=== PATIENT | male | born 1955 | race Asian ===

== ENCOUNTER 2017-02-02 17:13 | Inpatient (IN) | payer OTHER ==
[~2017-02-02] VITALS: Ht 170.2 cm; Wt 96.1 kg
[~2017-02-02 17:13] MED LIST: ATOR10TA65 PO; CLOP75TA4 PO; ISOS60TA PO; MECL25TA2 PO; METO25TA7 PO; NIT4 SL; RANI150T9 PO
[2017-02-02] MEDS ORDERED: ONDANSETRON 4 MG INJ IV STA ×2 (17:39→22:10)
[2017-02-02] MEDS ORDERED: SOD CHLORIDE 0.9% 1,000 ML IV STA ×2 (17:39→21:59)
[2017-02-02] MEDS ORDERED: HYDROmorphONE 1 MG/ML SYG IV STA ×2 (17:39→22:10)
[2017-02-02] MEDS ORDERED: CEFTRIAXONE 1 GM/50 ML (PMX) 50 ML IVPB STA ×2 (17:39→21:55)
[2017-02-02 18:10] LABS: ADD SCAN DIFF NO
[2017-02-02 18:12] LABS: ABNORMAL IP MESSAGE 1; HEMATOCRIT 42.3 % (42.0-52.0); HEMOGLOBIN 14.7 g/dl (14.0-18.0); MEAN CORPUSCULAR HEMOGLOBIN 34.4 pg (29.0-33.0); MEAN CORPUSCULAR HGB CONC 34.8 g/dl (32.0-37.0); MEAN CORPUSCULAR VOLUME 99.1 fl (82.0-101.0); MEAN PLATELET VOLUME 9.5 fl (7.4-10.4); PLATELET COUNT 134 10^3/UL (140-415); RED BLOOD COUNT 4.27 10^6/ul (4.70-6.10); RED CELL DISTRIBUTION WIDTH 12.2 % (11.5-14.5)
[2017-02-02 18:32] LABS: ALBUMIN 4.7 g/dl (3.3-4.9); ALBUMIN/GLOBULIN RATIO 1.3; BILIRUBIN,INDIRECT 0.8 mg/dl (0-1.1); BILIRUBIN,TOTAL 0.8 mg/dl (0.2-1.3); CALCIUM 9.1 mg/dl (8.4-10.2); CREATININE 1.15 mg/dl (0.61-1.24); POTASSIUM 3.9 mmol/L (3.5-5.1); TOTAL PROTEIN 8.3 g/dl (6.1-8.1)
[2017-02-02] MEDS ORDERED: ATOR10TA65 PO (18:54)
[2017-02-02] MEDS ORDERED: IOHEXOL 300MG/ML 150 ML BTL ONE (18:54)
[2017-02-02] MEDS ORDERED: SOD CHLORIDE 0.9% 100 ML ONE (18:54)
[2017-02-02] MEDS ORDERED: TAMS0.4C2 PO (18:55)
[2017-02-02] MEDS ORDERED: ISOS60TA PO (18:55)
[2017-02-02] MEDS ORDERED: PANT40TA4 PO (18:55)
[2017-02-02] MEDS ORDERED: MELO-110 PO (18:56)
[2017-02-02] MEDS ORDERED: METO25TA7 PO (18:56)
[2017-02-02] MEDS ORDERED: CLOP75TA4 PO (18:57)
[2017-02-02 19:15] LABS: LYMPHOCYTES # 0.1 10^3/ul (0.8-2.9); MONOCYTE # 0.5 10^3/ul (0.3-0.9)
[2017-02-02 19:16] LABS: PLATELET ESTIMATE PLT APPEAR ADEQUATE
[2017-02-02 19:19] LABS: ADD UMIC YES; UR ASCORBIC ACID NEGATIVE (NEGATIVE); UR BILIRUBIN (Dip) NEGATIVE (NEGATIVE); UR BLOOD (Dip) 3+ mg/dL (NEGATIVE); UR CLARITY CLOUDY (CLEAR); UR COLOR AMBER (YELLOW); UR GLUCOSE (Dip) NEGATIVE (NEGATIVE); UR KETONES (Dip) NEGATIVE (NEGATIVE); UR LEUKOCYTE ESTERASE (Dip) TRACE Leu/ul (NEGATIVE); UR MUCUS MANY /HPF (NONE SEEN); UR NITRITE (Dip) NEGATIVE (NEGATIVE); UR RBC 54 /HPF (0-5); UR SPECIFIC GRAVITY (Dip) 1.032 (1.003-1.030); UR TOTAL PROTEIN (Dip) 3+ mg/dl (NEGATIVE); UR UROBILINOGEN (Dip) NEGATIVE (NEGATIVE)
--- NOTE | 2017-02-02 19:29 | RADRPT ---
PROCEDURE: CT abdomen and pelvis with intravenous contrast. CLINICAL INDICATION: Right flank pain TECHNIQUE: Following intravenous contrast, spiral CT of the abdomen pelvis was performed and is re constructed at 2.5 mm contiguous axial intervals from the dome of the diaphragm to the inferior pubi c rami. Computer reformatted coronal and sagittal images are included. CT D I 18 millicurie Dose 1033 millicurie per centimeter COMPARISON: CT abdomen pelvis November 21, 2014 FINDINGS: Lung bases are clear of any infiltrate or mass. There is no effusion. The liver is of normal size, contour and attenuation with no mass or intrahepatic ductal dilatation. Tiny gallstones are present with thickening of the wall of the gallbladder compatible with chronic cholecystitis.. No splenic or adrenal abnormalities present. There are punctate calcifications in the pancreas. No mass or ductal dilatation is seen. Kidneys enhance symmetrically. No hydronephrosis or solid mass is present. Sub centimeter cortical cysts are seen in both kidneys. Noted is a 4 mm nonobstructing stone in the mid to upper pole of t he left kidney and a 6 mm nonobstructing stone in the lower pole of the left kidney. The ureters ar e of normal course and caliber with no stone. No bladder masses stone is present. Coarse calcifica tions are seen prostate. The No bowel mass or obstruction is seen. The appendix is normal. There is diverticulosis. There is no phlegmon, ascites or pneumoperitoneum. No aneurysm is detected. There is no retroperitoneal adenopathy. There are enlarged right external iliac chain and inguinal n odes. The osseous structures are intact. IMPRESSION: Multiple nonobstructing left renal calculi. No evidence of obstructive uropathy, diverticulitis or appendicitis. Diverticulosis. Enlarged right external iliac and inguinal nodes. These were present on the prior study but have inc reased in size in the interim. Tiny gallstones with thickening wall of gallbladder. Question chronic cholecystitis. Punctate calcifications throughout pancreas compatible with chronic pancreatitis. .Dao Arrieta MD, Date Time Electronically viewed and signed by .Dao Arrieta MD, on 02/02/2017 19:28 .A/
[2017-02-02] MEDS ORDERED: metroNIDAZOLE 500 MG/NS (PMX) 100 ML IVPB STA (21:55)
[2017-02-02 22:01] VITALS: TEMP 98.7
--- NOTE | 2017-02-02 22:23 | RADRPT ---
PROCEDURE: Right upper quadrant abdominal ultrasound. CLINICAL INDICATION: Abdominal pain TECHNIQUE: Osorio scale and color doppler ultrasound images of the right upper quadrant. COMPARISON: CT abdomen pelvis 02/02/2017 FINDINGS: Pancreas: Visualized portions appear of normal echogenicity, no focal lesions. Liver: Morphology: Normal in size and contour. Echogenicity: Increased echogenicity of the liver parenchyma suggestive of hepatic steatosis. Focal lesions: None. Main portal vein: Patent with hepatopetal flow. Biliary System: Normal appearing gallbladder wall. No gallstones seen. Possible septation versus adherent sludge within the region of the gallbladder f undus. No intrahepatic biliary dilatation. Common bile duct measures 4.0 mm in maximal dimension. Kidneys: Right 11.2 cm in length. Right renal cortical thickness is preserved. Normal echogenicity. No hydronephrosis. No renal calculi. No focal lesions. No free fluid identified. IMPRESSION: No gallstones. No evidence of gallbladder wall thickening to suggest cholecystitis. Questionable small septation versus adenomyosis versus phrygian cap configuration of the gallbladder fundus; these are all benign findings and correspond to the abnormality seen on the prior CT scan. Normal caliber intrahepatic and extrahepatic biliary system. RPTAT: AADD .Kavin Nesbitt MD, MD Date Time Electronically viewed and signed by .Kavin Nesbitt MD, on 02/02/2017 22:23 .B/
--- NOTE | 2017-02-02 23:04 | ERA ---
ER Documentation Chief Complaint Date/Time DATE: 02/02/17 TIME: 23:03 Chief Complaint lt flank pain with fever since last night HPI 62-year-old male who is complaining of pain in his right flank yesterday with fever of 102. Patient's had chills but no nausea vomiting diarrhea. Denies any cough. No headache. States he has kidney stones in the past and feels like this might be the same pain. The pain is dull and constant. He does have a bit of a decrease in appetite. Denies any hematuria dysuria ROS All systems reviewed and are negative except as per history of present illness. Medications Home Meds Reported Medications Clopidogrel Bisulfate* (Clopidogrel Bisulfate*) 75 Mg Tablet, 75 MG PO DAILY, # 30 TAB 02/02/17 Metoprolol Succinate* (Toprol XL*) 25 Mg Tab.sr.24h, 25 MG PO DAILY, #30 TAB 02/02/17 Meloxicam* (Mobic*) 15 Mg Tablet, 15 MG PO DAILY, #30 TAB WITH FOOD 02/02/17 Pantoprazole* (Pantoprazole*) 40 Mg Tablet.dr, 40 MG PO AC BREAKFAST, TAB 02/02/17 Tamsulosin Hcl* (Tamsulosin Hcl*) 0.4 Mg Cap.er.24h, 0.4 MG PO DAILY, CAP 02/02/17 Isosorbide Mononitrate* (Isosorbide Mononitrate*) 60 Mg Tab.er.24h, 60 MG PO DAILY, TAB 02/02/17 Atorvastatin Calcium (Atorvastatin Calcium) 10 Mg Tablet, 10 MG PO QHS, #30 TAB 02/02/17 Discontinued Reported Medications Nitroglycerin* (Nitrostat*) 0.4 Mg Tab.subl, 0.4 MG SL Q5MIN Y for CHEST PAIN, BOTTLE 11/21/14 Atorvastatin Calcium (Atorvastatin Calcium) 10 Mg Tab, 10 MG PO HS, TAB 11/21/14 Isosorbide Mononitrate* (Isosorbide Mononitrate*) 60 Mg Tab.er.24h, 60 MG PO DAILY, TAB 03/17/14 Discontinued Scripts Meclizine Hcl* (Antivert*) 25 Mg Tablet, 25 MG PO Q6H for DIZZINESS, #20 TAB Prov:PRUDENCE MISHRA DO 10/27/15 Ranitidine Hcl* (Zantac*) 150 Mg Tablet, 150 MG PO BID for EPIGASTRIC PAIN, #60 TAB Prov:PRUDENCE MISHRA DO 10/27/15 Metoprolol Succinate* (Toprol XL*) 25 Mg Tabsr, 25 MG PO DAILY for 28 Days Prov:MARY YORK CELL REPAIRER 03/20/14 Clopidogrel Bisulfate* (Clopidogrel Bisulfate*) 75 Mg Tablet, 75 MG PO DAILY for 28 Days, TAB Prov:MARY YORK CELL REPAIRER 03/20/14 Allergies Allergies: Coded Allergies: amoxicillin (Unverified Allergy, Unknown, 02/02/17) PMhx/Soc History of Surgery: No Anesthesia Reaction: No Hx 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 Disorder: No Hx Respiratory Disorders: No Hx Cardiac Disorders: Yes (hx of HTN) Hx Psychiatric Problems: No Hx Miscellaneous Medical Probl: Yes (hc DM) Hx Alcohol Use: No Hx Substance Use: No Hx Tobacco Use: No Smoking Status: Never smoker FmHx Family History: No coronary disease Physical Exam Vitals Vital Signs Date Time Temp Pulse Resp B/P Pulse Ox O2 Delivery O2 Flow Rate FiO2 02/02/17 22:01 98.7 02/02/17 21:00 88 14 136/95 Room Air 02/02/17 18:21 89 14 109/71 96 Room Air 02/02/17 17:16 99.6 101 18 128/69 96 Physical Exam Const: Well-developed, well-nourished, slightly ill-appearing Head: Atraumatic, normocephalic Eyes: Normal Conjunctiva, PERRLA, EOMI, normal sclera, no nystagmus ENT: Normal External Ears, Nose and Mouth, moist mucus membranes. Neck: Full range of motion. No meningismus, no lymphadenopathy. Resp: Clear to auscultation bilaterally, no wheezing, rhonchi, rales Cardio: Regular rate and rhythm, no murmurs, S1 S2 present Abd: Soft, moderate right mid abdomen tenderness, non distended. Normal bowel sounds, no guarding or rebound, no pulsitile abdominal masses or bruits Skin: No petechiae or rashes, no ecchymosis , no maculopapular rash Back: Moderate right CVA tenderness Ext: No cyanosis, or edema, FROM x 4, normal inspection, neurovascularly intact x 4 Neur: Awake and alert, STR 5/5 x 4, sensation intact x 4, no focal findings, cerebellum intact Psych: Normal Mood and Affect Result Diagram: 02/02/17 1800 02/02/17 1800 Results 24 hrs Laboratory Tests Test 02/02/17 18:00 White Blood Count 12.010^3/ul Red Blood Count 4.2710^6/ul Hemoglobin 14.7g/dl Hematocrit 42.3% Mean Corpuscular Volume 99.1fl Mean Corpuscular Hemoglobin 34.4pg Mean Corpuscular Hemoglobin Concent 34.8g/dl Red Cell Distribution Width 12.2% Platelet Count 57766^3/UL Mean Platelet Volume 9.5fl Neutrophils % 83.0% Band Neutrophils % 11.0% Lymphocytes % 1.0% Monocytes % 4.0% Eosinophils % % Metamyelocytes % 1.0% Neutrophils # 10.010^3/ul Lymphocytes # 0.110^3/ul Monocytes # 0.510^3/ul Eosinophils # 10^3/ul Metamyelocytes # 0.1 Platelet Estimate PLT APPEAR ADEQUATE Urine Color OMAR Urine Clarity CLOUDY Urine pH 5.0 Urine Specific [place] 1.032 Urine Ketones NEGATIVEmg/dL Urine Nitrite NEGATIVEmg/dL Urine Bilirubin NEGATIVEmg/dL Urine Urobilinogen NEGATIVEmg/dL Urine Leukocyte Esterase TRACELeu/ul Urine Microscopic RBC 54/HPF Urine Microscopic WBC 12/HPF Urine Mucus MANY/HPF Urine Hemoglobin 3+mg/dL Urine Glucose NEGATIVEmg/dL Urine Total Protein 3+mg/dl Sodium Level 135mmol/L Potassium Level 3.9mmol/L Chloride Level 98mmol/L Carbon Dioxide Level 25mmol/L Anion Gap 16 Blood Urea Nitrogen 17mg/dl Creatinine 1.15mg/dl Glucose Level 135mg/dl Calcium Level 9.1mg/dl Total Bilirubin 0.8mg/dl Direct Bilirubin 0.00mg/dl Indirect Bilirubin 0.8mg/dl Aspartate Amino Transf (AST/SGOT) 16IU/L Alanine Aminotransferase (ALT/SGPT) 27IU/L Alkaline Phosphatase 61IU/L Total Protein 8.3g/dl Albumin 4.7g/dl Globulin 3.60g/dl Albumin/Globulin Ratio 1.30 Current Medications Medications (Trade) Dose Ordered Sig/[place] Route PRN Reason Start Time Stop Time Status Last Admin Dose Admin Sodium Chloride (NS) 1,000 ml @ 1,000 mls/hr Q1H STAT IV 02/02/17 17:39 02/02/17 18:38 DC 02/02/17 18:32 Hydromorphone HCl (Dilaudid) 1 mg ONCE STAT IV 02/02/17 17:39 02/02/17 17:43 DC 02/02/17 18:36 Ondansetron HCl 4 mg 4 mg ONCE STAT IV 02/02/17 17:39 02/02/17 17:43 DC 02/02/17 18:36 Ceftriaxone Sodium (Rocephin) 50 ml @ 100 mls/hr ONCE STAT IVPB 02/02/17 17:39 02/02/17 18:08 DC 02/02/17 18:36 IV Flush 10 ml 10 ml STK-MED ONCE .ROUTE 02/02/17 18:54 02/02/17 18:55 DC 02/02/17 19:04 Sodium Chloride (NS) 100 ml @ ud STK-MED ONCE .ROUTE 02/02/17 18:54 02/02/17 18:55 DC 02/02/17 19:04 Iohexol 150 ml 150 ml STK-MED ONCE .ROUTE 02/02/17 18:54 02/02/17 18:55 DC 02/02/17 19:04 Ceftriaxone Sodium 50 ml @ 100 mls/hr ONCE STAT IVPB 02/02/17 21:55 02/02/17 22:24 UNV Metronidazole 100 ml @ 100 mls/hr ONCE STAT IVPB 02/02/17 21:55 02/02/17 22:54 DC 02/02/17 22:09 Sodium Chloride (NS) 1,000 ml @ 1,000 mls/hr Q1H STAT IV 02/02/17 21:59 02/02/17 22:58 DC 02/02/17 22:09 Hydromorphone HCl (Dilaudid) 1 mg ONCE STAT IV 02/02/17 22:10 02/02/17 22:11 DC 02/02/17 22:15 Ondansetron HCl (Zofran Inj) 4 mg ONCE STAT IV 02/02/17 22:10 02/02/17 22:11 DC 02/02/17 22:15 Sodium Chloride (NS) 2,850 ml BOLUS OVER 2 HOURS STAT IV* 02/02/17 23:23 02/02/17 23:25 DC Procedures/MDM PROCEDURE: CT abdomen and pelvis with intravenous contrast. CLINICAL INDICATION: Right flank pain TECHNIQUE: Following intravenous contrast, spiral CT of the abdomen pelvis was performed and is reconstructed at 2.5 mm contiguous axial intervals from the dome of the diaphragm to the inferior pubic rami. Computer reformatted coronal and sagittal images are included. CT D I 18 millicurie Dose 1033 millicurie per centimeter COMPARISON: CT abdomen pelvis November 21, 2014 FINDINGS: Lung bases are clear of any infiltrate or mass. There is no effusion. The liver is of normal size, contour and attenuation with no mass or intrahepatic ductal dilatation. Tiny gallstones are present with thickening of the wall of the gallbladder compatible with chronic cholecystitis.. No splenic or adrenal abnormalities present. There are punctate calcifications in the pancreas. No mass or ductal dilatation is seen. Kidneys enhance symmetrically. No hydronephrosis or solid mass is present. Sub centimeter cortical cysts are seen in both kidneys. Noted is a 4 mm nonobstructing stone in the mid to upper pole of the left kidney and a 6 mm nonobstructing stone in the lower pole of the left kidney. The ureters are of normal course and caliber with no stone. No bladder masses stone is present. Coarse calcifications are seen prostate. The No bowel mass or obstruction is seen. The appendix is normal. There is diverticulosis. There is no phlegmon, ascites or pneumoperitoneum. No aneurysm is detected. There is no retroperitoneal adenopathy. There are enlarged right external iliac chain and inguinal nodes. The osseous structures are intact. IMPRESSION: Multiple nonobstructing left renal calculi. No evidence of obstructive uropathy , diverticulitis or appendicitis. Diverticulosis. Enlarged right external iliac and inguinal nodes. These were present on the prior study but have increased in size in the interim. Tiny gallstones with thickening wall of gallbladder. Question chronic cholecystitis. Punctate calcifications throughout pancreas compatible with chronic pancreatitis. .Dao Arrieta MD, Date Time Electronically viewed and signed by .Dao Arrieta MD, MD on 02/02/2017 19: 28 .A/ CC: SONALI QUINN DO PROCEDURE: Right upper quadrant abdominal ultrasound. CLINICAL INDICATION: Abdominal pain TECHNIQUE: Osorio scale and color doppler ultrasound images of the right upper quadrant. COMPARISON: CT abdomen pelvis 02/02/2017 FINDINGS: Pancreas: Visualized portions appear of normal echogenicity, no focal lesions. Liver: Morphology: Normal in size and contour. Echogenicity: Increased echogenicity of the liver parenchyma suggestive of hepatic steatosis. Focal lesions: None. Main portal vein: Patent with hepatopetal flow. Biliary System: Normal appearing gallbladder wall. No gallstones seen. Possible septation versus adherent sludge within the region of the gallbladder fundus. No intrahepatic biliary dilatation. Common bile duct measures 4.0 mm in maximal dimension. Kidneys: Right 11.2 cm in length. Right renal cortical thickness is preserved. Normal echogenicity. No hydronephrosis. No renal calculi. No focal lesions. No free fluid identified. IMPRESSION: No gallstones. No evidence of gallbladder wall thickening to suggest cholecystitis. Questionable small septation versus adenomyosis versus phrygian cap configuration of the gallbladder fundus; these are all benign findings and correspond to the abnormality seen on the prior CT scan. Normal caliber intrahepatic and extrahepatic biliary system. RPTAT: AADD .Kavin Nesbitt MD, MD Date Time Electronically viewed and signed by .Kavin Nesbitt MD, MD on 02/02/2017 22:23 .B/ CC: SONALI QUINN DO Patient of blood and urine cultures along with Rocephin and Flagyl IV Normal saline 2 L Patient has a bandemia of 11% 83% neutrophils. The patient does not clinically look well. He states she still having pain. He has had a few rounds of Dilaudid IV for pain already. The patient has pyelonephritis. Spoke with Dr. Gomez for admission Order lactates however do not feel the patient is septic clinically has stable vital signs Departure Diagnosis: Primary Impression: Pyelonephritis Condition: Stable SONALI QUINN DO Feb 02, 2017 23:04
[2017-02-02] MEDS ORDERED: SODIUM CHLORIDE 0.9% 1L BAG IV* STA (23:23)
[2017-02-02] MEDS ORDERED: SOD CHLORIDE 0.9% 1,000 ML IV SCH (23:38)
--- NOTE | 2017-02-02 23:40 | RADRPT ---
PROCEDURE: Portable chest x-ray. CLINICAL INDICATION: Chest pain. TECHNIQUE: Portable AP view of the chest. COMPARISON: 10/26/2015. FINDINGS: There is vascular congestion. No pulmonary conolidation is identified. The cardiac silhouette is m ildly enlarged. There are small bilateral pleural effusions. There is no pneumothorax. IMPRESSION: 1. Vascular congestion. 2. Mildly enlarged cardiac silhouette. 3. Small bilateral pleural effusions. RPTAT: HTAR .Fady Adams MD, Date Time Electronically viewed and signed by .Fady Adams MD, on 02/02/2017 23:40 .R/
[2017-02-03 00:57] VITALS: BP 161/78; RESP 18
[2017-02-03 01:32] VITALS: Ht 170.2 cm; Wt 96.1 kg
[2017-02-03] MEDS ORDERED: VANCOMYCIN IV PER PHARMACY XX SCH (02:30)
[2017-02-03] MEDS ORDERED: ONDANSETRON 4 MG INJ IV PRN ×2 (02:30)
[2017-02-03] MEDS ORDERED: SOD CHLORIDE 0.9% 1,000 ML IV SCH (02:30)
[2017-02-03] MEDS ORDERED: ACETAMINOPHEN 325 MG TAB PO PRN ×2 (02:30)
[2017-02-03] MEDS: morphine 4 MG/ML VIAL IV PRN ×3 (02:50→18:31)
[2017-02-03] MEDS: SOD CHLORIDE 0.9% 1,000 ML IV SCH ×3 (02:53→22:30)
[2017-02-03] MEDS ORDERED: VANCOMYCIN 1.5 GM in SOD CHLORIDE 0.9% 250 ML IVPB ONE (03:00)
[2017-02-03] MEDS: metroNIDAZOLE 500 MG/NS (PMX) 100 ML IVPB SCH ×3 (06:26→22:08)
[2017-02-03] MEDS: PANTOPRAZOLE (EC) 40 MG TAB PO SCH (06:31)
[2017-02-03 07:02] LABS: ADD SCAN DIFF NO
[2017-02-03 07:04] LABS: BASOPHILS % 0.4 % (0.0-2.0); HEMATOCRIT 40.7 % (42.0-52.0); HEMOGLOBIN 13.9 g/dl (14.0-18.0); LYMPHOCYTES % 8.5 % (15.0-51.0); MEAN CORPUSCULAR HEMOGLOBIN 34.6 pg (29.0-33.0); MEAN CORPUSCULAR HGB CONC 34.2 g/dl (32.0-37.0); MEAN CORPUSCULAR VOLUME 101.2 fl (82.0-101.0); MONOCYTE # 0.5 10^3/ul (0.3-0.9); MONOCYTES % 4.4 % (0.0-11.0); NEUTROPHIL # 9.7 10^3/ul (1.6-7.5); NEUTROPHILS % 85.7 % (39.0-77.0); PLATELET COUNT 128 10^3/UL (140-415); RED BLOOD COUNT 4.02 10^6/ul (4.70-6.10); RED CELL DISTRIBUTION WIDTH 12.1 % (11.5-14.5); WHITE BLOOD COUNT 11.3 10^3/ul (4.8-10.8)
[2017-02-03 07:39] LABS: CALCIUM 8.6 mg/dl (8.4-10.2); CREATININE 0.92 mg/dl (0.61-1.24)
[2017-02-03] MEDS: METOPROLOL (XL) 25 MG TAB PO SCH (08:33)
[2017-02-03] MEDS: CLOPIDOGREL 75 MG TAB PO SCH (08:34)
[2017-02-03] MEDS: ISOSORBIDE MONONITRATE(SR)60 MG TAB PO SCH (08:34)
[2017-02-03 09:17] VITALS: BP 128/72; RESP 18
--- NOTE | 2017-02-03 11:08 | HP ---
Date/Time of Note Date/Time of Note DATE: 02/03/17 TIME: 10:32 Assessment/Plan VTE Prophylaxis VTE Prophylaxis Intervention: LMWH Lines/Catheters [facility] ([facility] Peripheral IV Urinary Cath still in place: No Assessment/Plan Assessment/Plan 62-year-old male with: 1. Flank pain, clinical diagnosis of pyelonephritis/cystitis: Continue current antibiotics, follow urine culture and blood cultures for further adjustments. 2. Peripheral vascular disease: Continue antiplatelet therapy, patient will need arterial Dopplers to be done but also referral to vascular surgery as an outpatient and likely also podiatry given his recurrent left medial malleolar wound 3. Left medial malleolar wound: Peripheral vascular disease workup, vascular surgery referral as needed, wound care. 4. Hypertension: Continue home meds 5. Benign prostatic hypertrophy: Continue home meds. 6. Gastroesophageal reflux disease: Continue PPI Prophylaxis: Tonics for GI prophylaxis and Lovenox for DVT prophylaxis Disposition: Follow-up urine cultures blood cultures for further antibiotic adjustment, follow-up arterial Doppler lower extremities HPI/ROS Admit Date/Time Admit Date/Time Feb 02, 2017 at 23:39 Hx of Present Illness Chief complaint: Fevers and flank pain History of presenting illness: 62-year-old male with history of benign prostatic hypertrophy, peripheral artery disease, hypertension, morbid obesity presented to the emergency department with complaints of bilateral flank pain, fevers and chills for the past 3 days. The patient also reports dysuria for the past 3 days. He denies any suprapubic tenderness. He denies any chest pain , shortness of breath or diarrhea. CAT scan of the abdomen and pelvis showing some inguinal lymphadenopathy but no radiological signs of pyelonephritis. However based on patient's complaint definitely symptoms consistent with cystitis at least. He has been started on IV antibiotics and a urine culture and blood cultures are pending. Also patient was found to have left medial malleolar recurring wounds, according to the family he was told he may have peripheral arterial disease and has been on Plavix actually. He also does carry history of cardiomyopathy that is unclear the primary etiology patient had an angiogram done in the [facility] 3 years ago and he was told he did not have any obstructive coronary artery disease. We will do noninvasive workup for peripheral artery disease however patient understand that further referral will be done outpatient vascular surgery as needed and he definitely will need a field sales representative or wound care physician to take care of this recurrent ulcer. He has been seen by wound care and will continue wound care per recommendations ROS Constitutional: chills, diaphoresis Eyes: no complaints ENT: no complaints Respiratory: no complaints Cardiovascular: no complaints Gastrointestinal: decreased appetite, nausea Genitourinary: dysuria, flank pain Musculoskeletal: no complaints Skin: other (left maleolar recurrent wound ) Neurologic: no complaints Endocrine: no complaints Lymphatic: other (varicose veins) PMH/Family/Social Past Medical History Peripheral vascular disease Varicose vein Morbid obesity Hypertension Reported history of cardiomyopathy BPH Medical History: GERD, hypertension Past Surgical History Past Surgical Hx: no surgical history Family History Significant Family History: no pertinent family hx Social History Alcohol Use: sober (Patient quit 4 years ago only drinks occasional red wine) Smoking Status: Former smoker (At least one pack a day for 40 years and quit 4 years ago) Drug Use: none Exam/Review of Systems Vital Signs Vitals Vital Signs Date Time Temp Pulse Resp B/P Pulse Ox O2 Delivery O2 Flow Rate FiO2 02/03/17 09:17 98.4 89 18 128/72 97 02/02/17 23:50 Room Air Intake and Output 02/02/17 02/02/17 02/03/17 15:00 23:00 07:00 Intake Total 650 ml Balance 650 ml Exam Constitutional: alert, oriented, other (Obese), well developed Head: normocephalic ENMT: nl external ears & nose, nl lips & teeth Respiratory: clear to auscultation, normal air movement Cardiovascular: nl pulses, regular rate and rhythm Gastrointestinal: non-tender, soft Genitourinary - Male: CVA tenderness (Bilateral) Musculoskeletal: nl gait and stance 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: SUPERVISOR PRINT LINE II-XII intact, nl mental status, nl speech, nl strength Skin: other (Left medial malleolar recurring wound) Lymph: other (Varicose veins bilaterally) Labs Result Diagram: 02/03/1759 02/03/1759 Medications Medications Current Medications Ceftriaxone Sodium 50 ml @ 100 mls/hr Q24H IVPB ; Start 02/03/17 at 18:00 Metronidazole (Flagyl 500 Mg (Pmx)) 100 ml @ 100 mls/hr Q8 IVPB Last administered on 02/03/17t 06:26; Admin Dose 100 MLS/HR; Start 02/03/17 at 06:00 Acetaminophen (Tylenol Tab) 650 mg Q4H PRN PO PAIN AND OR ELEVATED TEMP; Start 02/03/17 at 02:30 Morphine Sulfate (morphine) 4 mg Q4H PRN IV pain Last administered on 10:17; Admin Dose 4 MG; Start 02/03/17 at 02:30 Ondansetron HCl 4 mg 4 mg Q4H PRN IV NAUSEA AND/OR VOMITING; Start 02/03/17 at 02:30 Sodium Chloride (NS) 1,000 ml @ 100 mls/hr Q10H IV Last administered on 02:53; Admin Dose 100 MLS/HR; Start 02/03/17 at 02:30 Atorvastatin Calcium (Lipitor) 10 mg QHS PO ; Start 02/03/17 at 21:00 Clopidogrel Bisulfate (plaVIX) 75 mg DAILY PO Last administered on 02/03/17 08 :34; Admin Dose 75 MG; Start 02/03/17 at 09:00 Isosorbide Mononitrate (Imdur) 60 mg DAILY PO Last administered on 02/03/17 08 :34; Admin Dose 60 MG; Start 02/03/17 at 09:00 Metoprolol Succinate (Toprol Xl) 25 mg DAILY PO Last administered on 02/03/17 08:33; Admin Dose 25 MG; Start 02/03/17 at 09:00 Tamsulosin HCl 0.4 mg 0.4 mg DAILY@21 PO ; Start 02/03/17 at 21:00 Vancomycin HCl/ Sodium Chloride (Vancocin/NS) 250 ml @ 83.333 mls/ hr Q12H IVPB ; Start 02/03/17 at 15:00 Miscellaneous Information (*Rx Drug Level Order Reminder*) VANCO TROUGH @ 1, 400 ON... ONCE ONCE XX ; Start 02/04/17 at 14:00; Stop 02/04/17 at 14:01 Procedures Procedures PROCEDURE: CT abdomen and pelvis with intravenous contrast. CLINICAL INDICATION: Right flank pain TECHNIQUE: Following intravenous contrast, spiral CT of the abdomen pelvis was performed and is reconstructed at 2.5 mm contiguous axial intervals from the dome of the diaphragm to the inferior pubic rami. Computer reformatted coronal and sagittal images are included. CT D I 18 millicurie Dose 1033 millicurie per centimeter COMPARISON: CT abdomen pelvis November 21, 2014 FINDINGS: Lung bases are clear of any infiltrate or mass. There is no effusion. The liver is of normal size, contour and attenuation with no mass or intrahepatic ductal dilatation. Tiny gallstones are present with thickening of the wall of the gallbladder compatible with chronic cholecystitis.. No splenic or adrenal abnormalities present. There are punctate calcifications in the pancreas. No mass or ductal dilatation is seen. Kidneys enhance symmetrically. No hydronephrosis or solid mass is present. Sub centimeter cortical cysts are seen in both kidneys. Noted is a 4 mm nonobstructing stone in the mid to upper pole of the left kidney and a 6 mm nonobstructing stone in the lower pole of the left kidney. The ureters are of normal course and caliber with no stone. No bladder masses stone is present. Coarse calcifications are seen prostate. The No bowel mass or obstruction is seen. The appendix is normal. There is diverticulosis. There is no phlegmon, ascites or pneumoperitoneum. No aneurysm is detected. There is no retroperitoneal adenopathy. There are enlarged right external iliac chain and inguinal nodes. The osseous structures are intact. IMPRESSION: Multiple nonobstructing left renal calculi. No evidence of obstructive uropathy , diverticulitis or appendicitis. Diverticulosis. Enlarged right external iliac and inguinal nodes. These were present on the prior study but have increased in size in the interim. Tiny gallstones with thickening wall of gallbladder. Question chronic cholecystitis. Punctate calcifications throughout pancreas compatible with chronic pancreatitis. .Dao Arrieta MD, MD Date Time Electronically viewed and signed by .Dao Arrieta MD, on 02/02/2017 19: 28 PROCEDURE: Right upper quadrant abdominal ultrasound. CLINICAL INDICATION: Abdominal pain TECHNIQUE: Osorio scale and color doppler ultrasound images of the right upper quadrant. COMPARISON: CT abdomen pelvis 02/02/2017 FINDINGS: Pancreas: Visualized portions appear of normal echogenicity, no focal lesions. Liver: Morphology: Normal in size and contour. Echogenicity: Increased echogenicity of the liver parenchyma suggestive of hepatic steatosis. Focal lesions: None. Main portal vein: Patent with hepatopetal flow. Biliary System: Normal appearing gallbladder wall. No gallstones seen. Possible septation versus adherent sludge within the region of the gallbladder fundus. No intrahepatic biliary dilatation. Common bile duct measures 4.0 mm in maximal dimension. Kidneys: Right 11.2 cm in length. Right renal cortical thickness is preserved. Normal echogenicity. No hydronephrosis. No renal calculi. No focal lesions. No free fluid identified. IMPRESSION: No gallstones. No evidence of gallbladder wall thickening to suggest cholecystitis. Questionable small septation versus adenomyosis versus phrygian cap configuration of the gallbladder fundus; these are all benign findings and correspond to the abnormality seen on the prior CT scan. Normal caliber intrahepatic and extrahepatic biliary system. RPTAT: AADD .Kavin Nesbitt MD, Date Time Electronically viewed and signed by .Kavin Nesbitt MD, MD on 02/02/2017 22:23 PROCEDURE: Portable chest x-ray. CLINICAL INDICATION: Chest pain. TECHNIQUE: Portable AP view of the chest. COMPARISON: 10/26/2015. FINDINGS: There is vascular congestion. No pulmonary conolidation is identified. The cardiac silhouette is mildly enlarged. There are small bilateral pleural effusions. There is no pneumothorax. IMPRESSION: 1. Vascular congestion. 2. Mildly enlarged cardiac silhouette. 3. Small bilateral pleural effusions. RPTAT: HTAR .Fady Adams MD, MD Date Time Electronically viewed and signed by .Fady Adams MD, MD on 02/02/2017 23:40 EDWIN RATLIFF Feb 03, 2017 10:42
[2017-02-03 15:04] VITALS: BP 126/68; RESP 16
[2017-02-03] MEDS: ENOXAPARIN 40 MG/0.4 ML SYG SC SCH (15:07)
[2017-02-03] MEDS: VANCOMYCIN 1.25 GM in SOD CHLORIDE 0.9% 250 ML IVPB SCH (15:50)
[2017-02-03] MEDS: ACETAMINOPHEN 325 MG TAB PO PRN (17:11)
[2017-02-03] MEDS ORDERED: CEFTRIAXONE 1 GM/50 ML (PMX) 50 ML IVPB SCH (18:00)
[2017-02-03] MEDS ORDERED: PENDING SANTYL ORDER FOR WOUND CARE XX SCH (19:30)
[2017-02-03 20:12] VITALS: BP 128/81; RESP 20
[2017-02-03] MEDS: TAMSULOSIN (SR) 0.4 MG CAP PO SCH (20:39)
[2017-02-03] MEDS: ATORVASTATIN 10 MG TAB PO SCH (20:39)
[2017-02-04] VITALS (7 sets, daily range): BP systolic 108–159; BP diastolic 53–92; PULSE 90–112; RESP 18–22
[2017-02-04] MEDS: ACETAMINOPHEN 325 MG TAB PO PRN ×3 (00:42→18:00)
[2017-02-04] MEDS: morphine 4 MG/ML VIAL IV PRN ×4 (01:25→18:00)
[2017-02-04] MEDS: NITROGLYCERIN (SL) 0.4 MG TAB SL PRN ×2 (01:29→01:40)
[2017-02-04] MEDS: VANCOMYCIN 1.25 GM in SOD CHLORIDE 0.9% 250 ML IVPB SCH ×2 (03:17→15:23)
[2017-02-04 06:36] LABS: ADD SCAN DIFF NO
[2017-02-04] MEDS: PANTOPRAZOLE (EC) 40 MG TAB PO SCH (06:42)
[2017-02-04] MEDS: metroNIDAZOLE 500 MG/NS (PMX) 100 ML IVPB SCH ×3 (06:42→21:24)
[2017-02-04 06:51] LABS: BASOPHILS % 0.2 % (0.0-2.0); HEMATOCRIT 37.9 % (42.0-52.0); HEMOGLOBIN 13.1 g/dl (14.0-18.0); LYMPHOCYTES # 1.1 10^3/ul (0.8-2.9); LYMPHOCYTES % 10.1 % (15.0-51.0); MEAN CORPUSCULAR HEMOGLOBIN 34.2 pg (29.0-33.0); MEAN CORPUSCULAR HGB CONC 34.6 g/dl (32.0-37.0); MEAN PLATELET VOLUME 10.4 fl (7.4-10.4); MONOCYTE # 0.7 10^3/ul (0.3-0.9); MONOCYTES % 6.5 % (0.0-11.0); NEUTROPHIL # 8.9 10^3/ul (1.6-7.5); NEUTROPHILS % 82.6 % (39.0-77.0); PLATELET COUNT 126 10^3/UL (140-415); RED BLOOD COUNT 3.83 10^6/ul (4.70-6.10); RED CELL DISTRIBUTION WIDTH 11.9 % (11.5-14.5); WHITE BLOOD COUNT 10.8 10^3/ul (4.8-10.8)
[2017-02-04 07:08] LABS: CHOL/HDL RATIO 3.5 RATIO; MAGNESIUM 1.6 mg/dl (1.7-2.5); PHOSPHORUS 2.7 mg/dl (2.5-4.9)
[2017-02-04 07:10] LABS: ALBUMIN 3.9 g/dl (3.3-4.9); ALBUMIN/GLOBULIN RATIO 1.25; BILIRUBIN,INDIRECT 0.4 mg/dl (0-1.1); BILIRUBIN,TOTAL 0.4 mg/dl (0.2-1.3); CALCIUM 8.4 mg/dl (8.4-10.2); CREATININE 0.82 mg/dl (0.61-1.24); POTASSIUM 4.1 mmol/L (3.5-5.1)
[2017-02-04] MEDS: ISOSORBIDE MONONITRATE(SR)60 MG TAB PO SCH (09:21)
[2017-02-04] MEDS: CLOPIDOGREL 75 MG TAB PO SCH (09:21)
[2017-02-04] MEDS: METOPROLOL (XL) 25 MG TAB PO SCH (09:21)
[2017-02-04] MEDS: ENOXAPARIN 40 MG/0.4 ML SYG SC SCH (09:23)
[2017-02-04] MEDS ORDERED: COLLAGENASE 30 GM TUBE TOP PRN (10:00)
--- NOTE | 2017-02-04 10:06 | PN ---
Date/Time of Note Date/Time of Note DATE: 02/04/17 TIME: 09:57 Assessment/Plan VTE Prophylaxis VTE Prophylaxis Intervention: LMWH Lines/Catheters IV [facility] Type (from [facility]): Peripheral IV Urinary Cath still in place: No Assessment/Plan Assessment/Plan 62-year-old male with: 1. Flank pain, clinical diagnosis of pyelonephritis/cystitis: Urine culture with mixed organisms likely contaminated. Continue current antibiotics, We will change Rocephin to Levaquin. Blood cultures NGTD. 2. Peripheral vascular disease: Continue antiplatelet therapy, Arterial Dopplers pending and referral to vascular surgery prn 3. Left medial malleolar infected wound with noted the left lower extremity cellulitis today, the wound itself has discharge coming off of it. Patient was febrile overnight, wound culture pending, antibiotics adjusted to Levaquin and vancomycin. Peripheral vascular disease workup, vascular surgery referral as needed, wound care and podiatry to be consulted. 4. Hypertension: Continue home meds 5. Benign prostatic hypertrophy: Continue home meds. 6. Gastroesophageal reflux disease: Continue PPI 7. Episode of chest pain: EKG within normal limits, troponin within normal limits, will check a second troponin 8 hours apart. Continue aspirin and outpatient medication. Prophylaxis: PPI for GI prophylaxis and Lovenox for DVT prophylaxis Disposition: Follow-up arterial Doppler lower extremities, blood cultures, wound cultures. Patient admitted status has been changed to inpatient as of today. Subjective 24 Hr Interval Summary Free Text/Dictation Patient was episode of fever up to 103 overnight, chills, diaphoresis. He is also noted to have now left lower extremity cellulitis likely from left medial malleolar wound infection disease with him being on vancomycin, antibiotics have been adjusted Levaquin has been started. White blood cell count is within normal however. Patient still having dysuria and urinary frequency but urine culture likely contaminated Episode of chest pain overnight resolved, likely secondary to fevers chills and overall myalgia and discomfort. Exam/Review of Systems Vital Signs Vitals Vital Signs Date Time Temp Pulse Resp B/P Pulse Ox O2 Delivery O2 Flow Rate FiO2 02/04/17 08:00 99.4 98 18 134/71 96 02/02/17 23:50 Room Air Intake and Output 02/03/17 02/03/17 02/04/17 15:00 23:00 07:00 Intake Total 100 ml 1350 ml 600 ml Output Total 600 ml Balance 100 ml 1350 ml 0 ml Exam Constitutional: alert, obese, oriented, well developed Respiratory: clear to auscultation, normal air movement Cardiovascular: nl pulses, regular rate and rhythm Gastrointestinal: non-tender, soft Musculoskeletal: other (Left lower extremity cellulitis with infected left medial malleolar wound) Extremities: other (Chronic skin changes bilateral lower extremity with acute infection left lower) 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: BRAKE TESTER II-XII intact, nl mental status, nl speech, nl strength Results Result Diagram: 02/04/1748 02/04/1748 Results 24 hrs Laboratory Tests Test 02/04/17 01:53 02/04/17 05:48 02/04/17 05:49 Troponin I < 0.012 White Blood Count 10.8 Red Blood Count 3.83 L Hemoglobin 13.1 L Hematocrit 37.9 L Mean Corpuscular Volume 99.0 Mean Corpuscular Hemoglobin 34.2 H Mean Corpuscular Hemoglobin Concent 34.6 Red Cell Distribution Width 11.9 Platelet Count 126 L Mean Platelet Volume 10.4 Neutrophils % 82.6 H Lymphocytes % 10.1 L Monocytes % 6.5 Eosinophils % 0.0 Basophils % 0.2 Nucleated Red Blood Cells % 0.0 Neutrophils # 8.9 H Lymphocytes # 1.1 Monocytes # 0.7 Eosinophils # 0.0 Basophils # 0.0 Nucleated Red Blood Cells # 0.0 Sodium Level 127 L Potassium Level 4.1 Chloride Level 98 Carbon Dioxide Level 25 Anion Gap 8 Blood Urea Nitrogen 13 Creatinine 0.82 Glucose Level 112 Lactic Acid Level 1.2 Calcium Level 8.4 Total Bilirubin 0.4 Direct Bilirubin 0.00 Indirect Bilirubin 0.4 Aspartate Amino Transf (AST/SGOT) 20 Alanine Aminotransferase (ALT/SGPT) 28 Alkaline Phosphatase 54 Total Protein 7.0 # Albumin 3.9 Globulin 3.10 Albumin/Globulin Ratio 1.25 Phosphorus Level 2.7 Magnesium Level 1.6 L Triglycerides Level 87 Cholesterol Level 139 LDL Cholesterol, Calculated 83 HDL Cholesterol 39 Cholesterol/HDL Ratio 3.5 Medications Medications Current Medications Ceftriaxone Sodium 50 ml @ 100 mls/hr Q24H IVPB Last administered on t 17:11; Admin Dose 100 MLS/HR; Start 02/03/17 at 18:00 Metronidazole (Flagyl 500 Mg (Pmx)) 100 ml @ 100 mls/hr Q8 IVPB Last administered on 02/04/17 06:42; Admin Dose 100 MLS/HR; Start 02/03/17 at 06:00 Acetaminophen (Tylenol Tab) 650 mg Q4H PRN PO PAIN AND OR ELEVATED TEMP Last administered on 02/04/17 09:20; Admin Dose 650 MG; Start 02/03/17 at 02:30 Morphine Sulfate (morphine) 4 mg Q4H PRN IV pain Last administered on 06:47; Admin Dose 4 MG; Start 02/03/17 at 02:30 Ondansetron HCl 4 mg 4 mg Q4H PRN IV NAUSEA AND/OR VOMITING Last administered on 02/03/17 20:39; Admin Dose 4 MG; Start 02/03/17 at 02:30 Sodium Chloride (NS) 1,000 ml @ 100 mls/hr Q10H IV Last administered on 15:07; Admin Dose 100 MLS/HR; Start 02/03/17 at 02:30 Atorvastatin Calcium (Lipitor) 10 mg QHS PO Last administered on 02/03/17 20: 39; Admin Dose 10 MG; Start 02/03/17 at 21:00 Clopidogrel Bisulfate (plaVIX) 75 mg DAILY PO Last administered on 02/04/17 09 :21; Admin Dose 75 MG; Start 02/03/17 at 09:00 Isosorbide Mononitrate (Imdur) 60 mg DAILY PO Last administered on 02/04/17 09 :21; Admin Dose 60 MG; Start 02/03/17 at 09:00 Metoprolol Succinate (Toprol Xl) 25 mg DAILY PO Last administered on 02/04/17 09:21; Admin Dose 25 MG; Start 02/03/17 at 09:00 Tamsulosin HCl 0.4 mg 0.4 mg DAILY@21 PO Last administered on 02/03/17 20:39; Admin Dose 0.4 MG; Start 02/03/17 at 21:00 Vancomycin HCl/ Sodium Chloride (Vancocin/NS) 250 ml @ 83.333 mls/ hr Q12H IVPB Last administered on 02/04/17 03:17; Admin Dose 83.333 MLS/HR; Start at 15:00 Miscellaneous Information (*Rx Drug Level Order Reminder*) VANCO TROUGH @ 1, 400 ON... ONCE ONCE XX ; Start 02/04/17 at 14:00; Stop 02/04/17 at 14:01 Enoxaparin Sodium (Lovenox) 40 mg DAILY SC Last administered on 02/04/17 09:23 ; Admin Dose 40 MG; Start 02/03/17 at 14:00 Nitroglycerin (Nitroglycerin (Sl Tab) 0.4 Mg) 1 tab Q5M PRN SL ANGINA Last administered on 02/04/17 01:40; Admin Dose 1 TAB; Start 02/04/17 at 01:30 Collagenase (Santyl) 1 applic DAILY TOP ; Start 02/04/17 at 11:00 Collagenase (Santyl) 1 applic PRN PRN TOP WOUND CARE; Start 02/04/17 at 10:00 EDWIN RATLIFF Feb 04, 2017 10:06
[2017-02-04] MEDS ORDERED: COLLAGENASE 30 GM TUBE TOP SCH (11:00)
[2017-02-04] MEDS ORDERED: MAGNESIUM SULFATE 2 GM/50 ML 50 ML IVPB ONE (11:30)
[2017-02-04] MEDS: LEVOFLOXACIN 750MG/D5W (PMX) 150 ML IVPB SCH (11:36)
--- NOTE | 2017-02-04 13:59 | RADRPT ---
PROCEDURE: US bilateral lower extremity arteries. CLINICAL INDICATION: Bilateral leg pain. Claudication that interferes significantly with the rossy ent's lifestyle. Right lower extremity ulcer. TECHNIQUE: Multiple longitudinal and transverse images of the bilateral lower extremity arteries w ere obtained with salas scale, pulsed Doppler, and color Doppler imaging. COMPARISON: No prior studies are available for comparison. FINDINGS: Right STEAM POWERPLANT SUPERVISOR:115 cm/sec PSFA:98 cm/sec MSFA:97 cm/sec DSFA:114 cm/sec POP:67 cm/sec FEATHER BALER:123 cm/sec DPA:42 cm/sec Left STEAM POWERPLANT SUPERVISOR:70 cm/sec PSFA:84 cm/sec MSFA:103 cm/sec DSFA:91 cm/sec POP:32 cm/sec FEATHER BALER:35 cm/sec DPA:48 cm/sec The right ankle-brachial index is 1.5 and the left ankle-brachial index is 1.3. On the right side, there is normal triphasic flow in the femoral and popliteal systems. Biphasic fl ow is present in the calf arteries. On the left side, there is normal triphasic flow throughout. There is an enlarged lymph node in the right upper thigh measuring 4.8 x 5.1 x 2.0 cm. IMPRESSION: 1. Abnormal biphasic flow in the right calf arteries. 2. Otherwise unremarkable bilateral lower extremity arterial Doppler. RPTAT: QQ .Luis M Almaraz MD, Date Time Electronically viewed and signed by .Luis M Almaraz MD, on 02/04/2017 13:58 .R/
--- NOTE | 2017-02-04 14:00 | RADRPT ---
Vent Rate: 102 bpm RR Interval: 0 msec OK Interval: 140 msec QRS Duration: 138 msec QT Interval: 364 msec QTC Interval: 474 msec P-R-T [place]: 33 - 89 - 14 degrees Sinus tachycardia Right bundle branch block Abnormal ECG Electronically Signed By: Laron Tran [id number]
[2017-02-04] MEDS: SOD CHLORIDE 0.9% 1,000 ML IV SCH ×2 (15:23→18:03)
[2017-02-04] MEDS: COLLAGENASE 30 GM TUBE TOP SCH (15:24)
[2017-02-04] MEDS: TAMSULOSIN (SR) 0.4 MG CAP PO SCH (21:24)
[2017-02-04] MEDS: ATORVASTATIN 10 MG TAB PO SCH (21:24)
[2017-02-05 02:00] VITALS: BP 148/80; RESP 19
[2017-02-05] MEDS: ACETAMINOPHEN 325 MG TAB PO PRN ×2 (03:00→12:59)
[2017-02-05] MEDS: VANCOMYCIN 1.5 GM in SOD CHLORIDE 0.9% 250 ML IVPB SCH ×2 (03:01→16:32)
[2017-02-05] MEDS: morphine 4 MG/ML VIAL IV PRN ×2 (03:25→23:50)
[2017-02-05] MEDS: SOD CHLORIDE 0.9% 1,000 ML IV SCH ×2 (04:30→14:58)
[2017-02-05] MEDS: PANTOPRAZOLE (EC) 40 MG TAB PO SCH (06:16)
[2017-02-05 07:33] LABS: ADD SCAN DIFF NO
[2017-02-05 07:40] LABS: HEMATOCRIT 40.2 % (42.0-52.0); MEAN CORPUSCULAR HGB CONC 34.8 g/dl (32.0-37.0); MEAN CORPUSCULAR VOLUME 97.6 fl (82.0-101.0); PLATELET COUNT 147 10^3/UL (140-415); RED BLOOD COUNT 4.12 10^6/ul (4.70-6.10); RED CELL DISTRIBUTION WIDTH 11.9 % (11.5-14.5); WHITE BLOOD COUNT 12.1 10^3/ul (4.8-10.8)
[2017-02-05 07:50] VITALS: BP 147/82; RESP 16
[2017-02-05 08:00] LABS: ALBUMIN 4.2 g/dl (3.3-4.9); ALBUMIN/GLOBULIN RATIO 1.35; BILIRUBIN,INDIRECT 0.5 mg/dl (0-1.1); BILIRUBIN,TOTAL 0.5 mg/dl (0.2-1.3); CALCIUM 7.8 mg/dl (8.4-10.2); CREATININE 0.88 mg/dl (0.61-1.24); POTASSIUM 3.4 mmol/L (3.5-5.1); TOTAL PROTEIN 7.3 g/dl (6.1-8.1)
[2017-02-05 08:02] LABS: PHOSPHORUS 2.6 mg/dl (2.5-4.9)
[2017-02-05] MEDS: METOPROLOL (XL) 25 MG TAB PO SCH (08:23)
[2017-02-05] MEDS: ENOXAPARIN 40 MG/0.4 ML SYG SC SCH (08:24)
[2017-02-05] MEDS: ISOSORBIDE MONONITRATE(SR)60 MG TAB PO SCH (08:25)
[2017-02-05] MEDS: CLOPIDOGREL 75 MG TAB PO SCH (08:25)
[2017-02-05 11:47] LABS: EOSINOPHILS # 0.1 10^3/ul (0.0-0.5); NEUTROPHIL # 9.7 10^3/ul (1.6-7.5); POLYCHROMASIA 1+
[2017-02-05 11:48] LABS: BURR CELLS OCCASIONAL
[2017-02-05] MEDS: COLLAGENASE 30 GM TUBE TOP SCH (11:48)
[2017-02-05] MEDS: LEVOFLOXACIN 750MG/D5W (PMX) 150 ML IVPB SCH (11:48)
[2017-02-05] MEDS ORDERED: POTASSIUM CHLORIDE (SR) 20 MEQ TAB PO STA (12:40)
--- NOTE | 2017-02-05 12:54 | PN ---
Date/Time of Note Date/Time of Note DATE: 02/05/17 TIME: 12:42 Assessment/Plan VTE Prophylaxis VTE Prophylaxis Intervention: LMWH Lines/Catheters [facility] Peripheral IV Urinary Cath still in place: No Assessment/Plan Assessment/Plan 62-year-old male with: 1. Flank pain, clinical diagnosis of pyelonephritis/cystitis: Urine culture with mixed organisms likely contaminated. Continue Vanco but patient still with fevers at night, so will d/c levaquin and change to Merem given cellulitis too Blood cultures NGTD. 2. Peripheral vascular disease: Continue antiplatelet therapy, vascular surgery consult. 3. Left medial malleolar infected wound with noted the left lower extremity cellulitis Patient again was febrile overnight, wound culture pending, Antibiotics to be changed to Merem and Levaquin Podiatry consulted Peripheral vascular disease workup, vascular surgery will be consulted based on Doppler findings. Wound care. 4. Hypertension: Continue home meds 5. Benign prostatic hypertrophy: Continue home meds. 6. Gastroesophageal reflux disease: Continue PPI Prophylaxis: PPI for GI prophylaxis and Lovenox for DVT prophylaxis Disposition: Follow-up wound cultures. Podiatry and vascular surgery consult, may also need ID if remains febrile Subjective 24 Hr Interval Summary Free Text/Dictation Patient feels better this morning however he had another episode of fever up to 101 overnight Cellulitis right lower extremity is fairly unchanged, no improvement Antibiotics will be adjusted Dr. Brewer from podiatry saw the patient this morning further workup per his recommendations Exam/Review of Systems Vital Signs Vitals Vital Signs Date Time Temp Pulse Resp B/P Pulse Ox O2 Delivery O2 Flow Rate FiO2 02/05/17 07:50 98.9 84 16 147/82 96 02/02/17 23:50 Room Air Intake and Output 02/04/17 02/04/17 02/05/17 15:00 23:00 07:00 Intake Total 150 ml 1550 ml 970 ml Output Total 1700 ml Balance 150 ml 1550 ml -730 ml Exam Constitutional: alert, obese, oriented, well developed Cardiovascular: nl pulses, regular rate and rhythm Gastrointestinal: non-tender, soft Musculoskeletal: other (Right medial malleolar wound with dressing in place, right lower extremity edema and erythema still significant) Extremities: normal pulses 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: COAL TRAMMER II-XII intact, nl mental status, nl speech, nl strength Results Result Diagram: 7/15/17 0705 02/05/17 0705 Results 24 hrs Laboratory Tests Test 02/04/17 13:18 02/05/17 07:05 Vancomycin Level Trough 9.4 L White Blood Count 12.1 H Red Blood Count 4.12 L Hemoglobin 14.0 Hematocrit 40.2 L Mean Corpuscular Volume 97.6 Mean Corpuscular Hemoglobin 34.0 H Mean Corpuscular Hemoglobin Concent 34.8 Red Cell Distribution Width 11.9 Platelet Count 147 Mean Platelet Volume 10.0 Neutrophils % 80.0 H Band Neutrophils % 3.0 Lymphocytes % 8.0 L Monocytes % 8.0 Eosinophils % 1.0 Neutrophils # 9.7 H Lymphocytes # 1.0 Monocytes # 1.0 H Eosinophils # 0.1 Polychromasia 1+ Sodium Level 137 Potassium Level 3.4 L Chloride Level 98 Carbon Dioxide Level 22 Anion Gap 20 H Blood Urea Nitrogen 12 Creatinine 0.88 Glucose Level 111 Calcium Level 7.8 L Phosphorus Level 2.6 Magnesium Level 2.0 Total Bilirubin 0.5 Direct Bilirubin 0.00 Indirect Bilirubin 0.5 Aspartate Amino Transf (AST/SGOT) 19 Alanine Aminotransferase (ALT/SGPT) 33 Alkaline Phosphatase 64 Total Protein 7.3 Albumin 4.2 Globulin 3.10 Albumin/Globulin Ratio 1.35 Medications Medications Current Medications Acetaminophen (Tylenol Tab) 650 mg Q4H PRN PO PAIN AND OR ELEVATED TEMP Last administered on 02/05/17 03:00; Admin Dose 650 MG; Start 02/03/17 at 02:30 Morphine Sulfate (morphine) 4 mg Q4H PRN IV pain Last administered on 03:25; Admin Dose 4 MG; Start 02/03/17 at 02:30 Ondansetron HCl 4 mg 4 mg Q4H PRN IV NAUSEA AND/OR VOMITING Last administered on 02/03/17 20:39; Admin Dose 4 MG; Start 02/03/17 at 02:30 Sodium Chloride (NS) 1,000 ml @ 100 mls/hr Q10H IV Last administered on 15:23; Admin Dose 100 MLS/HR; Start 02/03/17 at 02:30 Atorvastatin Calcium (Lipitor) 10 mg QHS PO Last administered on 02/04/17 21: 24; Admin Dose 10 MG; Start 02/03/17 at 21:00 Clopidogrel Bisulfate (plaVIX) 75 mg DAILY PO Last administered on 02/05/17 08 :25; Admin Dose 75 MG; Start 02/03/17 at 09:00 Isosorbide Mononitrate (Imdur) 60 mg DAILY PO Last administered on 02/05/17 08 :25; Admin Dose 60 MG; Start 02/03/17 at 09:00 Metoprolol Succinate (Toprol Xl) 25 mg DAILY PO Last administered on 02/05/17 08:23; Admin Dose 25 MG; Start 02/03/17 at 09:00 Tamsulosin HCl (Flomax) 0.4 mg DAILY@21 PO Last administered on 02/04/17 21:24 ; Admin Dose 0.4 MG; Start 02/03/17 at 21:00 Enoxaparin Sodium (Lovenox) 40 mg DAILY SC Last administered on 02/05/17 08:24 ; Admin Dose 40 MG; Start 02/03/17 at 14:00 Nitroglycerin (Nitroglycerin (Sl Tab) 0.4 Mg) 1 tab Q5M PRN SL ANGINA Last administered on 02/04/17 01:40; Admin Dose 1 TAB; Start 02/04/17 at 01:30 Collagenase (Santyl) 1 applic DAILY TOP Last administered on 02/05/17 11:48; Admin Dose 1 APPLIC; Start 02/04/17 at 11:00 Collagenase 1 applic 1 applic PRN PRN TOP WOUND CARE; Start 02/04/17 at 10:00 Levofloxacin/ Dextrose 150 ml @ 100 mls/hr Q24H IVPB Last administered on 02/05 11:48; Admin Dose 100 MLS/HR; Start 02/04/17 at 11:00 Vancomycin HCl/ Sodium Chloride (Vancocin/NS) 250 ml @ 83.333 mls/ hr Q12H IVPB Last administered on 02/05/17 03:01; Admin Dose 83.333 MLS/HR; Start at 03:00 EDWIN RATLIFF Feb 05, 2017 12:52
[2017-02-05 14:50] VITALS: BP 135/79; RESP 18
[2017-02-05] MEDS: MEROPENEM 1 GM/50ML(PMX) 50 ML IVPB SCH ×2 (14:58→22:38)
[2017-02-05 20:56] VITALS: BP 127/75; RESP 20
[2017-02-05] MEDS: TAMSULOSIN (SR) 0.4 MG CAP PO SCH (21:26)
[2017-02-05] MEDS: ATORVASTATIN 10 MG TAB PO SCH (21:26)
[2017-02-06] MEDS: SOD CHLORIDE 0.9% 1,000 ML IV SCH ×3 (00:30→14:33)
[2017-02-06] MEDS: ACETAMINOPHEN 325 MG TAB PO PRN (01:29)
[2017-02-06 02:00] VITALS: BP 137/79; RESP 20
[2017-02-06] MEDS: VANCOMYCIN 1.5 GM in SOD CHLORIDE 0.9% 250 ML IVPB SCH ×2 (02:59→15:59)
[2017-02-06 06:24] LABS: ADD SCAN DIFF NO
[2017-02-06 06:27] LABS: BASOPHIL # 0.1 10^3/ul (0.0-0.1); BASOPHILS % 0.4 % (0.0-2.0); EOSINOPHILS # 0.1 10^3/ul (0.0-0.5); HEMATOCRIT 41.4 % (42.0-52.0); HEMOGLOBIN 14.3 g/dl (14.0-18.0); LYMPHOCYTES # 2.6 10^3/ul (0.8-2.9); LYMPHOCYTES % 20.1 % (15.0-51.0); MEAN CORPUSCULAR HGB CONC 34.5 g/dl (32.0-37.0); MEAN CORPUSCULAR VOLUME 98.3 fl (82.0-101.0); MEAN PLATELET VOLUME 9.8 fl (7.4-10.4); MONOCYTES % 7.9 % (0.0-11.0); NEUTROPHIL # 9.1 10^3/ul (1.6-7.5); NEUTROPHILS % 69.9 % (39.0-77.0); PLATELET COUNT 169 10^3/UL (140-415); RED BLOOD COUNT 4.21 10^6/ul (4.70-6.10); RED CELL DISTRIBUTION WIDTH 12.2 % (11.5-14.5)
[2017-02-06 06:33] LABS: MAGNESIUM 1.9 mg/dl (1.7-2.5)
[2017-02-06 06:49] LABS: CALCIUM 8.3 mg/dl (8.4-10.2); CREATININE 0.85 mg/dl (0.61-1.24); POTASSIUM 3.8 mmol/L (3.5-5.1)
[2017-02-06] MEDS: MEROPENEM 1 GM/50ML(PMX) 50 ML IVPB SCH ×2 (06:51→14:33)
[2017-02-06] MEDS: PANTOPRAZOLE (EC) 40 MG TAB PO SCH (06:51)
[2017-02-06] MEDS: ENOXAPARIN 40 MG/0.4 ML SYG SC SCH (08:14)
[2017-02-06] MEDS: ISOSORBIDE MONONITRATE(SR)60 MG TAB PO SCH (08:16)
[2017-02-06] MEDS: CLOPIDOGREL 75 MG TAB PO SCH (08:16)
[2017-02-06] MEDS: METOPROLOL (XL) 25 MG TAB PO SCH (08:16)
[2017-02-06 08:30] VITALS: BP 125/80; RESP 16
[2017-02-06] MEDS: COLLAGENASE 30 GM TUBE TOP SCH (11:00)
--- NOTE | 2017-02-06 11:56 | PN ---
Date/Time of Note Date/Time of Note DATE: 02/06/17 TIME: 11:50 Assessment/Plan VTE Prophylaxis VTE Prophylaxis Intervention: LMWH Lines/Catheters IV C[facility]ter Type (from [facility]): Peripheral IV Urinary Cath still in place: No Assessment/Plan Assessment/Plan 62-year-old male with: 1. Flank pain, clinical diagnosis of pyelonephritis/cystitis: Urine culture with mixed organisms likely contaminated. Continue Vanco and Meropenem. Afebrile for 24 hours now. Blood cultures NGTD. 2. Peripheral vascular disease: Continue antiplatelet therapy, Vascular surgery consult. 3. Left medial malleolar infected wound with noted the left lower extremity cellulitis. Slightly improved cellulitic right lower extremity Patient now afebrile, wound culture with Klebsiella Continue meropenem and Vanco for now until final cultures Podiatry consulted Peripheral vascular disease workup, vascular surgery will be consulted based on Doppler findings. Wound care. 4. Hypertension: Continue home meds 5. Benign prostatic hypertrophy: Continue home meds. 6. Gastroesophageal reflux disease: Continue PPI Prophylaxis: PPI for GI prophylaxis and Lovenox for DVT prophylaxis Disposition: Follow-up wound cultures. Infectious disease, podiatry and vascular surgery consult. Subjective 24 Hr Interval Summary Free Text/Dictation Patient afebrile over the past 24 hours, slightly improved right lower extremity cellulitis, currently on vancomycin and meropenem. Infectious disease consult pending, patient has been seen by podiatry already and will obtain vascular surgery consult within the next 24hrs Exam/Review of Systems Vital Signs Vitals Vital Signs Date Time Temp Pulse Resp B/P Pulse Ox O2 Delivery O2 Flow Rate FiO2 02/06/17 08:30 98.8 99 16 125/80 95 02/02/17 23:50 Room Air Intake and Output 02/05/17 02/05/17 02/06/17 15:00 23:00 07:00 Intake Total 750 ml 1330 ml Output Total 1300 ml Balance 750 ml 30 ml Exam Constitutional: alert, obese, oriented, well developed Respiratory: clear to auscultation, normal air movement Cardiovascular: nl pulses, regular rate and rhythm Gastrointestinal: non-tender, soft Musculoskeletal: nl gait and stance, other (Right lower extremity edema, erythema slightly improved, dressing in place for right medial malleolar wound) Extremities: normal pulses, other (Right lower extremity edema) 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: POUNCER II-XII intact, nl mental status, nl speech, nl strength Results Result Diagram: 02/06/17 0557 02/06/17 0557 Results 24 hrs Laboratory Tests Test 02/06/17 05:57 White Blood Count 13.0 H Red Blood Count 4.21 L Hemoglobin 14.3 Hematocrit 41.4 L Mean Corpuscular Volume 98.3 Mean Corpuscular Hemoglobin 34.0 H Mean Corpuscular Hemoglobin Concent 34.5 Red Cell Distribution Width 12.2 Platelet Count 169 Mean Platelet Volume 9.8 Neutrophils % 69.9 Lymphocytes % 20.1 Monocytes % 7.9 Eosinophils % 1.0 Basophils % 0.4 Nucleated Red Blood Cells % 0.0 Neutrophils # 9.1 H Lymphocytes # 2.6 Monocytes # 1.0 H Eosinophils # 0.1 Basophils # 0.1 Nucleated Red Blood Cells # 0.0 Sodium Level 139 Potassium Level 3.8 Chloride Level 99 Carbon Dioxide Level 25 Anion Gap 19 H Blood Urea Nitrogen 10 Creatinine 0.85 Glucose Level 95 Calcium Level 8.3 L Phosphorus Level 3.0 Magnesium Level 1.9 Medications Medications Current Medications Acetaminophen (Tylenol Tab) 650 mg Q4H PRN PO PAIN AND OR ELEVATED TEMP Last administered on 02/06/17 01:29; Admin Dose 650 MG; Start 02/03/17 at 02:30 Morphine Sulfate (morphine) 4 mg Q4H PRN IV pain Last administered on 23:50; Admin Dose 4 MG; Start 02/03/17 at 02:30 Ondansetron HCl 4 mg 4 mg Q4H PRN IV NAUSEA AND/OR VOMITING Last administered on 02/03/17 20:39; Admin Dose 4 MG; Start 02/03/17 at 02:30 Sodium Chloride (NS) 1,000 ml @ 100 mls/hr Q10H IV Last administered on 14:58; Admin Dose 100 MLS/HR; Start 02/03/17 at 02:30 Atorvastatin Calcium (Lipitor) 10 mg QHS PO Last administered on 02/05/17 21: 26; Admin Dose 10 MG; Start 02/03/17 at 21:00 Clopidogrel Bisulfate (plaVIX) 75 mg DAILY PO Last administered on 02/06/17 08 :16; Admin Dose 75 MG; Start 02/03/17 at 09:00 Isosorbide Mononitrate (Imdur) 60 mg DAILY PO Last administered on 02/06/17 08 :16; Admin Dose 60 MG; Start 02/03/17 at 09:00 Metoprolol Succinate (Toprol Xl) 25 mg DAILY PO Last administered on 02/06/17 08:16; Admin Dose 25 MG; Start 02/03/17 at 09:00 Tamsulosin HCl (Flomax) 0.4 mg DAILY@21 PO Last administered on 02/05/17 21:26 ; Admin Dose 0.4 MG; Start 02/03/17 at 21:00 Enoxaparin Sodium (Lovenox) 40 mg DAILY SC Last administered on 02/06/17 08:14 ; Admin Dose 40 MG; Start 02/03/17 at 14:00 Nitroglycerin (Nitroglycerin (Sl Tab) 0.4 Mg) 1 tab Q5M PRN SL ANGINA Last administered on 02/04/17 01:40; Admin Dose 1 TAB; Start 02/04/17 at 01:30 Collagenase (Santyl) 1 applic DAILY TOP Last administered on 02/06/17 11:00; Admin Dose 1 APPLIC; Start 02/04/17 at 11:00 Collagenase 1 applic 1 applic PRN PRN TOP WOUND CARE; Start 02/04/17 at 10:00 Vancomycin HCl 1.5 gm/Sodium Chloride 250 ml @ 83.333 mls/ hr Q12H IVPB Last administered on 02/06/17 02:59; Admin Dose 83.333 MLS/HR; Start 02/05/17 at 03: 00 Meropenem/Sodium Chloride (Merrem 1 Gm/50 ml (Pmx)) 50 ml @ 100 mls/hr Q8 IVPB Last administered on 02/06/17 06:51; Admin Dose 100 MLS/HR; Start 02/05/17 at 14:00 EDWIN RATLIFF Feb 06, 2017 11:56
[2017-02-06 14:38] VITALS: BP 119/73; RESP 18
[2017-02-06] MEDS: morphine 4 MG/ML VIAL IV PRN (15:55)
--- NOTE | 2017-02-06 17:21 | CONS ---
Date/Time of Note Date/Time of Note DATE: 02/06/17 TIME: 17:21 Consultation Date/Type/Reason Admit Date/Time Feb 02, 2017 at 23:39 Type of Consultation: ID Eyes: no complaints ENT: no complaints Respiratory: no complaints Cardiovascular: no complaints Gastrointestinal: decreased appetite, nausea Genitourinary: dysuria, flank pain Musculoskeletal: no complaints Skin: other (left maleolar recurrent wound ) Neurologic: no complaints Lymphatic: other (varicose veins) Past Medical History Medical History: GERD, hypertension Past Surgical History Past Surgical Hx: no surgical history Social History Alcohol Use: sober (Patient quit 4 years ago only drinks occasional red wine) Smoking Status: Former smoker (At least one pack a day for 40 years and quit 4 years ago) Drug Use: none Exam/Review of Systems Vital Signs Vitals Vital Signs Date Time Temp Pulse Resp B/P Pulse Ox O2 Delivery O2 Flow Rate FiO2 02/06/17 14:38 99.2 94 18 119/73 98 02/02/17 23:50 Room Air Intake and Output 02/05/17 02/05/17 02/06/17 15:00 23:00 07:00 Intake Total 750 ml 1330 ml Output Total 1300 ml Balance 750 ml 30 ml Results Result Diagram: 02/06/17 0557 02/06/17 0557 Results 24 hrs Laboratory Tests Test 02/06/17 05:57 White Blood Count 13.0 H Red Blood Count 4.21 L Hemoglobin 14.3 Hematocrit 41.4 L Mean Corpuscular Volume 98.3 Mean Corpuscular Hemoglobin 34.0 H Mean Corpuscular Hemoglobin Concent 34.5 Red Cell Distribution Width 12.2 Platelet Count 169 Mean Platelet Volume 9.8 Neutrophils % 69.9 Lymphocytes % 20.1 Monocytes % 7.9 Eosinophils % 1.0 Basophils % 0.4 Nucleated Red Blood Cells % 0.0 Neutrophils # 9.1 H Lymphocytes # 2.6 Monocytes # 1.0 H Eosinophils # 0.1 Basophils # 0.1 Nucleated Red Blood Cells # 0.0 Sodium Level 139 Potassium Level 3.8 Chloride Level 99 Carbon Dioxide Level 25 Anion Gap 19 H Blood Urea Nitrogen 10 Creatinine 0.85 Glucose Level 95 Calcium Level 8.3 L Phosphorus Level 3.0 Magnesium Level 1.9 Medications Medications Current Medications Acetaminophen (Tylenol Tab) 650 mg Q4H PRN PO PAIN AND OR ELEVATED TEMP Last administered on 02/06/17 01:29; Admin Dose 650 MG; Start 02/03/17 at 02:30 Morphine Sulfate (morphine) 4 mg Q4H PRN IV pain Last administered on 15:55; Admin Dose 4 MG; Start 02/03/17 at 02:30 Ondansetron HCl 4 mg 4 mg Q4H PRN IV NAUSEA AND/OR VOMITING Last administered on 02/03/17 20:39; Admin Dose 4 MG; Start 02/03/17 at 02:30 Sodium Chloride (NS) 1,000 ml @ 100 mls/hr Q10H IV Last administered on 14:33; Admin Dose 100 MLS/HR; Start 02/03/17 at 02:30 Atorvastatin Calcium (Lipitor) 10 mg QHS PO Last administered on 02/05/17 21: 26; Admin Dose 10 MG; Start 02/03/17 at 21:00 Clopidogrel Bisulfate (plaVIX) 75 mg DAILY PO Last administered on 02/06/17 08 :16; Admin Dose 75 MG; Start 02/03/17 at 09:00 Isosorbide Mononitrate (Imdur) 60 mg DAILY PO Last administered on 02/06/17 08 :16; Admin Dose 60 MG; Start 02/03/17 at 09:00 Metoprolol Succinate (Toprol Xl) 25 mg DAILY PO Last administered on 02/06/17 08:16; Admin Dose 25 MG; Start 02/03/17 at 09:00 Tamsulosin HCl (Flomax) 0.4 mg DAILY@21 PO Last administered on 02/05/17 21:26 ; Admin Dose 0.4 MG; Start 02/03/17 at 21:00 Enoxaparin Sodium (Lovenox) 40 mg DAILY SC Last administered on 02/06/17 08:14 ; Admin Dose 40 MG; Start 02/03/17 at 14:00 Nitroglycerin (Nitroglycerin (Sl Tab) 0.4 Mg) 1 tab Q5M PRN SL ANGINA Last administered on 02/04/17 01:40; Admin Dose 1 TAB; Start 02/04/17 at 01:30 Collagenase (Santyl) 1 applic DAILY TOP Last administered on 02/06/17 11:00; Admin Dose 1 APPLIC; Start 02/04/17 at 11:00 Collagenase 1 applic 1 applic PRN PRN TOP WOUND CARE; Start 02/04/17 at 10:00 Vancomycin HCl 1.5 gm/Sodium Chloride 250 ml @ 83.333 mls/ hr Q12H IVPB Last administered on 02/06/17 15:59; Admin Dose 83.333 MLS/HR; Start 02/05/17 at 03: 00 Meropenem/Sodium Chloride (Merrem 1 Gm/50 ml (Pmx)) 50 ml @ 100 mls/hr Q8 IVPB Last administered on 02/06/17 14:33; Admin Dose 100 MLS/HR; Start 02/05/17 at 14:00 Miscellaneous Information (*Rx Drug Level Order Reminder*) VANCOMYCIN TROUGH AT 0200 ONCE ONCE XX ; Start 02/07/17 at 02:00; Stop 02/07/17 at 02:01 LIANA RODRIGUEZ MD Feb 06, 2017 17:21
[2017-02-06] MEDS: ATORVASTATIN 10 MG TAB PO SCH (20:33)
[2017-02-06] MEDS: TAMSULOSIN (SR) 0.4 MG CAP PO SCH (20:33)
[2017-02-06 20:54] VITALS: BP 117/58; RESP 18
[2017-02-07 03:03] VITALS: BP 136/81; RESP 21
[2017-02-07] MEDS: VANCOMYCIN 1.5 GM in SOD CHLORIDE 0.9% 250 ML IVPB SCH ×2 (03:14→15:16)
[2017-02-07] MEDS: morphine 4 MG/ML VIAL IV PRN ×2 (03:54→17:17)
[2017-02-07] MEDS: LEVOFLOXACIN 500 MG TAB PO SCH (05:03)
[2017-02-07] MEDS: SOD CHLORIDE 0.9% 1,000 ML IV SCH (05:04)
[2017-02-07 05:13] LABS: ADD SCAN DIFF NO
[2017-02-07 05:16] LABS: BASOPHILS % 0.4 % (0.0-2.0); EOSINOPHILS # 0.2 10^3/ul (0.0-0.5); EOSINOPHILS % 3.1 % (0.0-7.0); HEMATOCRIT 36.4 % (42.0-52.0); HEMOGLOBIN 12.9 g/dl (14.0-18.0); LYMPHOCYTES # 1.3 10^3/ul (0.8-2.9); LYMPHOCYTES % 17.2 % (15.0-51.0); MEAN CORPUSCULAR HEMOGLOBIN 34.3 pg (29.0-33.0); MEAN CORPUSCULAR HGB CONC 35.4 g/dl (32.0-37.0); MEAN CORPUSCULAR VOLUME 96.8 fl (82.0-101.0); MONOCYTE # 0.7 10^3/ul (0.3-0.9); MONOCYTES % 9.7 % (0.0-11.0); NEUTROPHIL # 5.1 10^3/ul (1.6-7.5); NEUTROPHILS % 68.5 % (39.0-77.0); PLATELET COUNT 179 10^3/UL (140-415); RED BLOOD COUNT 3.76 10^6/ul (4.70-6.10); RED CELL DISTRIBUTION WIDTH 11.9 % (11.5-14.5); WHITE BLOOD COUNT 7.4 10^3/ul (4.8-10.8)
[2017-02-07 05:53] LABS: CALCIUM 7.9 mg/dl (8.4-10.2); CREATININE 0.74 mg/dl (0.61-1.24); POTASSIUM 3.3 mmol/L (3.5-5.1)
[2017-02-07 05:55] LABS: MAGNESIUM 1.8 mg/dl (1.7-2.5); PHOSPHORUS 2.9 mg/dl (2.5-4.9)
[2017-02-07 08:00] VITALS: BP 138/80; RESP 18
[2017-02-07] MEDS: CLOPIDOGREL 75 MG TAB PO SCH (08:12)
[2017-02-07] MEDS: PANTOPRAZOLE (EC) 40 MG TAB PO SCH (08:12)
[2017-02-07] MEDS: METOPROLOL (XL) 25 MG TAB PO SCH (08:12)
[2017-02-07] MEDS: ISOSORBIDE MONONITRATE(SR)60 MG TAB PO SCH (08:12)
[2017-02-07] MEDS: ENOXAPARIN 40 MG/0.4 ML SYG SC SCH (08:13)
[2017-02-07] MEDS: COLLAGENASE 30 GM TUBE TOP SCH (08:14)
[2017-02-07] MEDS ORDERED: POTASSIUM CHLORIDE (SR) 20 MEQ TAB PO STA (10:22)
--- NOTE | 2017-02-07 10:43 | PN ---
Date/Time of Note Date/Time of Note DATE: 02/07/17 TIME: 10:20 Assessment/Plan VTE Prophylaxis VTE Prophylaxis Intervention: LMWH Lines/Catheters IV Catheter Type (from [facility]): Saline Lock Urinary Cath still in place: No Assessment/Plan Assessment/Plan 62-year-old male with: 1. Left medial malleolar infected wound with noted the left lower extremity cellulitis. Cellulitic right lower extremity more or less unchanged, patient also complains some more pain in his right lower extremity. MRI of the right calf and ankle area pending this morning. Check ESR CRP. However white blood cell count back to normal Patient now afebrile x 2 days, wound culture with Klebsiella. Continue Vanco and appreciate infectious disease recommendation, patient back on Levaquin Podiatry consulted and Wound care following Peripheral vascular disease workup, vascular surgery will be consulted based on Doppler findings. 2. Peripheral vascular disease: Continue antiplatelet therapy, Vascular surgery consult. 3. Flank pain, clinical diagnosis of pyelonephritis/cystitis: Urine culture with mixed organisms likely contaminated. Continue Vanco and Levaquin. Afebrile for 48 hours now. Blood cultures NGTD. 4. Hypertension: Continue home meds 5. Benign prostatic hypertrophy: Continue home meds. 6. Gastroesophageal reflux disease: Continue PPI Prophylaxis: PPI for GI prophylaxis and Lovenox for DVT prophylaxis Disposition: Follow-up MRI right lower extremity. Infectious disease, podiatry and vascular surgery consult. Patient likely to need a PICC line placed if he is to remain on IV antibiotics. Subjective 24 Hr Interval Summary Free Text/Dictation Patient has been afebrile for 48 hours now, however he is right lower extremity erythema and edema seems to be mostly unchanged or barely improved, he is noted to have some dimpling around the erythematous area, slight streaking upwards towards his knee and thigh area, appreciate infectious disease adjustment of antibiotics. MRI of the right lower extremity pending. Podiatry to reevaluate patient and vascular surgery also has been consulted based on arterial Doppler findings. Exam/Review of Systems Vital Signs Vitals Vital Signs Date Time Temp Pulse Resp B/P Pulse Ox O2 Delivery O2 Flow Rate FiO2 02/07/17 08:00 99.0 77 18 138/80 94 Intake and Output 02/06/17 02/06/17 02/07/17 15:00 23:00 07:00 Intake Total 250 ml 3710 ml 610 ml Output Total 1550 ml 1650 ml Balance 250 ml 2160 ml -1040 ml Exam Constitutional: alert, obese, oriented, well developed Respiratory: clear to auscultation, normal air movement Cardiovascular: nl pulses, regular rate and rhythm Gastrointestinal: non-tender, soft Musculoskeletal: other (Right lower extremity still with edema and erythema with some areas of dimpling of the skin, patient complains tenderness to palpation in the calf area which is unchanged) Extremities: normal pulses 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: EMERGENCY MANAGEMENT COORDINATOR II-XII intact, nl mental status, nl speech, nl strength Results Result Diagram: 02/07/1742202/07/17422 Results 24 hrs Laboratory Tests Test 02/07/17 01:56 02/07/17 04:23 Vancomycin Level Trough 12.0 White Blood Count 7.4 # Red Blood Count 3.76 L Hemoglobin 12.9 L Hematocrit 36.4 L Mean Corpuscular Volume 96.8 Mean Corpuscular Hemoglobin 34.3 H Mean Corpuscular Hemoglobin Concent 35.4 Red Cell Distribution Width 11.9 Platelet Count 179 Mean Platelet Volume 10.0 Neutrophils % 68.5 Lymphocytes % 17.2 Monocytes % 9.7 Eosinophils % 3.1 Basophils % 0.4 Nucleated Red Blood Cells % 0.0 Neutrophils # 5.1 Lymphocytes # 1.3 Monocytes # 0.7 Eosinophils # 0.2 Basophils # 0.0 Nucleated Red Blood Cells # 0.0 Sodium Level 138 Potassium Level 3.3 L Chloride Level 101 Carbon Dioxide Level 24 Anion Gap 16 Blood Urea Nitrogen 9 Creatinine 0.74 Glucose Level 110 Calcium Level 7.9 L Phosphorus Level 2.9 Magnesium Level 1.8 Medications Medications Current Medications Acetaminophen (Tylenol Tab) 650 mg Q4H PRN PO PAIN AND OR ELEVATED TEMP Last administered on 02/06/17 01:29; Admin Dose 650 MG; Start 02/03/17 at 02:30 Morphine Sulfate (morphine) 4 mg Q4H PRN IV pain Last administered on 03:54; Admin Dose 4 MG; Start 02/03/17 at 02:30 Ondansetron HCl 4 mg 4 mg Q4H PRN IV NAUSEA AND/OR VOMITING Last administered on 02/03/17 20:39; Admin Dose 4 MG; Start 02/03/17 at 02:30 Sodium Chloride (NS) 1,000 ml @ 100 mls/hr Q10H IV Last administered on 05:04; Admin Dose 100 MLS/HR; Start 02/03/17 at 02:30 Atorvastatin Calcium (Lipitor) 10 mg QHS PO Last administered on 02/06/17 20: 33; Admin Dose 10 MG; Start 02/03/17 at 21:00 Clopidogrel Bisulfate (plaVIX) 75 mg DAILY PO Last administered on 02/07/17 08 :12; Admin Dose 75 MG; Start 02/03/17 at 09:00 Isosorbide Mononitrate (Imdur) 60 mg DAILY PO Last administered on 02/07/17 08 :12; Admin Dose 60 MG; Start 02/03/17 at 09:00 Metoprolol Succinate (Toprol Xl) 25 mg DAILY PO Last administered on 02/07/17 08:12; Admin Dose 25 MG; Start 02/03/17 at 09:00 Tamsulosin HCl (Flomax) 0.4 mg DAILY@21 PO Last administered on 02/06/17 20:33 ; Admin Dose 0.4 MG; Start 02/03/17 at 21:00 Enoxaparin Sodium (Lovenox) 40 mg DAILY SC Last administered on 02/07/17 08:13 ; Admin Dose 40 MG; Start 02/03/17 at 14:00 Nitroglycerin (Nitroglycerin (Sl Tab) 0.4 Mg) 1 tab Q5M PRN SL ANGINA Last administered on 02/04/17 01:40; Admin Dose 1 TAB; Start 02/04/17 at 01:30 Collagenase (Santyl) 1 applic DAILY TOP Last administered on 02/07/17 08:14; Admin Dose 1 APPLIC; Start 02/04/17 at 11:00 Collagenase 1 applic 1 applic PRN PRN TOP WOUND CARE; Start 02/04/17 at 10:00 Vancomycin HCl/ Sodium Chloride (Vancocin/NS) 250 ml @ 83.333 mls/ hr Q12H IVPB Last administered on 02/07/17 03:14; Admin Dose 83.333 MLS/HR; Start at 03:00 Levofloxacin (Levaquin) 500 mg DAILY@06 PO Last administered on 02/07/17 05:03 ; Admin Dose 500 MG; Start 02/07/17 at 06:00 EDWIN RATLIFF Feb 07, 2017 10:30
[2017-02-07] MEDS ORDERED: MAGNESIUM SULFATE 2 GM/50 ML 50 ML IVPB ONE (11:00)
[2017-02-07 14:00] VITALS: BP 126/80; RESP 20
--- NOTE | 2017-02-07 15:38 | CONS ---
Date/Time of Note Date/Time of Note DATE: 02/07/17 TIME: 15:37 Assessment/Plan Assessment/Plan Chief Complaint/Hosp Course Alert, looks comfortable, no fevers T-max 99.7 pulse 86 respirations 20 blood pressure 126/80 saturation 98 on room air WBC 7.4 H&H 12.9 and 36.4 platelets 179 no shift BUN 9 creatinine 0.74 Microbiology: Blood cultures remain negative right ankle wound culture growing Klebsiella pneumonia resistant to Ancef gentamicin and Bactrim urine culture consistent with contaminated specimen Antibiotics: Vancomycin and Levaquin CT of the abdomen and pelvis on admission revealed multiple nonobstructive left renal calculi. Ultrasound of the gallbladder revealed no evidence of cholecystitis. Chest x-ray revealed vascular congestion. Arterial study of her extremity revealed no evidence of significant stenosis. Physical examination: This is obese well-developed elderly man who is awake, in no distress. Head atraumatic normocephalic sclera nonicteric, neck is supple, chest rise symmetrical breath sounds diminished basis, heart S1-S2 abdomen soft bowel tones present extremities with right lower extremity edema and erythema Assessment: 1. Right lower extremity cellulitis with infected wound 2. Urinary tract infection as per urinalysis 3. Peripheral vascular disease 4. Obesity and BPH Plan: Clinically stable, pending right lower extremity MRI, will repeat urine culture, continue antibiotics, follow podiatry and vascular recommendations Discussed with patient Problems: Consultation Date/Type/Reason Admit Date/Time Feb 04, 2017 at 09:56 Initial Consult Date Type of Consultation: ID Exam/Review of Systems Vital Signs Vitals Vital Signs Date Time Temp Pulse Resp B/P Pulse Ox O2 Delivery O2 Flow Rate FiO2 02/07/17 14:00 99.7 86 20 126/80 98 Intake and Output 02/06/17 02/06/17 02/07/17 15:00 23:00 07:00 Intake Total 250 ml 3710 ml 610 ml Output Total 1550 ml 1650 ml Balance 250 ml 2160 ml -1040 ml Results Result Diagram: 02/07/17 0423 02/07/17 0423 Results 24 hrs Laboratory Tests Test 02/07/17 01:56 02/07/17 04:23 Vancomycin Level Trough 12.0 White Blood Count 7.4 # Red Blood Count 3.76 L Hemoglobin 12.9 L Hematocrit 36.4 L Mean Corpuscular Volume 96.8 Mean Corpuscular Hemoglobin 34.3 H Mean Corpuscular Hemoglobin Concent 35.4 Red Cell Distribution Width 11.9 Platelet Count 179 Mean Platelet Volume 10.0 Neutrophils % 68.5 Lymphocytes % 17.2 Monocytes % 9.7 Eosinophils % 3.1 Basophils % 0.4 Nucleated Red Blood Cells % 0.0 Neutrophils # 5.1 Lymphocytes # 1.3 Monocytes # 0.7 Eosinophils # 0.2 Basophils # 0.0 Nucleated Red Blood Cells # 0.0 Erythrocyte Sedimentation Rate 46 H Sodium Level 138 Potassium Level 3.3 L Chloride Level 101 Carbon Dioxide Level 24 Anion Gap 16 Blood Urea Nitrogen 9 Creatinine 0.74 Glucose Level 110 Calcium Level 7.9 L Phosphorus Level 2.9 Magnesium Level 1.8 C-Reactive Protein 15.7 H Medications Medications Current Medications Acetaminophen (Tylenol Tab) 650 mg Q4H PRN PO PAIN AND OR ELEVATED TEMP Last administered on 02/06/17 01:29; Admin Dose 650 MG; Start 02/03/17 at 02:30 Morphine Sulfate (morphine) 4 mg Q4H PRN IV pain Last administered on 03:54; Admin Dose 4 MG; Start 02/03/17 at 02:30 Ondansetron HCl (Zofran Inj) 4 mg Q4H PRN IV NAUSEA AND/OR VOMITING Last administered on 02/03/17 20:39; Admin Dose 4 MG; Start 02/03/17 at 02:30 Atorvastatin Calcium (Lipitor) 10 mg QHS PO Last administered on 02/06/17 20: 33; Admin Dose 10 MG; Start 02/03/17 at 21:00 Clopidogrel Bisulfate (plaVIX) 75 mg DAILY PO Last administered on 02/07/17 08 :12; Admin Dose 75 MG; Start 02/03/17 at 09:00 Isosorbide Mononitrate (Imdur) 60 mg DAILY PO Last administered on 02/07/17 08 :12; Admin Dose 60 MG; Start 02/03/17 at 09:00 Metoprolol Succinate (Toprol Xl) 25 mg DAILY PO Last administered on 02/07/17 08:12; Admin Dose 25 MG; Start 02/03/17 at 09:00 Tamsulosin HCl (Flomax) 0.4 mg DAILY@21 PO Last administered on 02/06/17 20:33 ; Admin Dose 0.4 MG; Start 02/03/17 at 21:00 Enoxaparin Sodium (Lovenox) 40 mg DAILY SC Last administered on 02/07/17 08:13 ; Admin Dose 40 MG; Start 02/03/17 at 14:00 Nitroglycerin (Nitroglycerin (Sl Tab) 0.4 Mg) 1 tab Q5M PRN SL ANGINA Last administered on 02/04/17 01:40; Admin Dose 1 TAB; Start 02/04/17 at 01:30 Collagenase (Santyl) 1 applic DAILY TOP Last administered on 02/07/17 08:14; Admin Dose 1 APPLIC; Start 02/04/17 at 11:00 Collagenase 1 applic 1 applic PRN PRN TOP WOUND CARE; Start 02/04/17 at 10:00 Vancomycin HCl/ Sodium Chloride (Vancocin/NS) 250 ml @ 83.333 mls/ hr Q12H IVPB Last administered on 02/07/17 15:16; Admin Dose 83.333 MLS/HR; Start at 03:00 Levofloxacin (Levaquin) 500 mg DAILY@06 PO Last administered on 02/07/17 05:03 ; Admin Dose 500 MG; Start 02/07/17 at 06:00 DANILO MCDONALD NP Feb 07, 2017 15:37
--- NOTE | 2017-02-07 17:13 | RADRPT ---
PROCEDURE: MRI of the right lower extremity CLINICAL INDICATION: Right calf and lower extremity pain, evaluate for osteomyelitis TECHNIQUE: Multiplanar multisequence images of the right lower extremity without IV contrast. Im ages were interpreted at a independent PACS workstation. COMPARISON: Ultrasound of the right lower extremity dated February 04, 2017 FINDINGS: The field of view of this study includes the mid and lower calf. The upper calf and knee is out of the field of view. There is extensive subcutaneous soft tissue swelling and skin thickening with prominent varicose vei ns seen throughout the visualized portion of the right calf. The right calf is significantly enlarge d compared to the left. There is no discrete drainable fluid collection identified. There is no defi nite soft tissue gas though this should be correlated with plain films/CT as clinically warranted. There is no evidence of underlying osteomyelitis. Bone marrow signal appears normal. There is no e vidence of fracture. There is no evidence of muscle or tendon tear. There is no focal muscle atrophy. IMPRESSION: 1. Significantly enlarged right calf with extensive subcutaneous soft tissue swelling and skin thic kening, query cellulitis and / or venous stasis. No drainable fluid collection. No definite soft ti ssue gas though should correlate with plain films/CT as clinically warranted. 2. No evidence of acute fracture or osteomyelitis. 3. No evidence of tendon tear. RPTAT: [facility] .Je Hitchcock MD, Date Time Electronically viewed and signed by .Je Hitchcock MD, on 02/07/2017 17:12 .K/
--- NOTE | 2017-02-07 18:42 | PN ---
Date/Time of Note Date/Time of Note DATE: 02/07/17 TIME: 18:39 Assessment/Plan Lines/Catheters IV Catheter Type (from Nrsg): Saline Lock Baltazar in Place (from Nrsg): No Subjective 24 Hr Interval Summary Full consult dictated #[id number] IMP: severe chronic venous stasis changes with varicose veins BLE's severe cellulitis right lower extremity associate with a chronic venous stasis ulcer - no need for arterial intervention - strong pedal pulses bilaterally - continue IV antibiotics per ID - once the cellulitis resolves he will benefit from multilayer compression therapy - in the correction he will benefit from venous ablation of incompetent axial veins - venous duplex was ordered, can be done as an outpatient after the wounds are healed Exam/Review of Systems Vital Signs Vitals Vital Signs Date Time Temp Pulse Resp B/P Pulse Ox O2 Delivery O2 Flow Rate FiO2 02/07/17 14:00 99.7 86 20 126/80 98 Intake and Output 02/06/17 02/06/17 02/07/17 15:00 23:00 07:00 Intake Total 250 ml 3710 ml 610 ml Output Total 1550 ml 1650 ml Balance 250 ml 2160 ml -1040 ml Results Result Diagram: 02/07/17 0423 02/07/17 0423 HAMMAD GARRIDO MD Feb 07, 2017 18:42
[2017-02-07 20:13] VITALS: BP 113/73; RESP 19
--- NOTE | 2017-02-07 20:48 | RADRPT ---
PROCEDURE: US Lower extremity Venous. CLINICAL INDICATION: right ankle ulcer / edema TECHNIQUE: Multiple sonographic images of the bilateral lower extremity deep venous system was obt ained utilizing grayscale, color-flow, compressive sonography and doppler imaging with augmentation. The images were reviewed on a PACS workstation. COMPARISON: None. FINDINGS: There is normal compressibility and flow within the bilateral common femoral, deep femoral, superfic ial femoral and popliteal veins. The deep veins the calf were incompletely visualized. IMPRESSION: No sonographic evidence for deep venous thrombosis in the bilateral lower extremities. Physician Donaldo Date Time Electronically viewed and signed by Physician Donaldo on 02/07/2017 20:48 ML/
[2017-02-07] MEDS: TAMSULOSIN (SR) 0.4 MG CAP PO SCH (21:08)
[2017-02-07] MEDS: ATORVASTATIN 10 MG TAB PO SCH (21:08)
[2017-02-08 02:07] VITALS: BP 117/67; RESP 18
[2017-02-08] MEDS: morphine 4 MG/ML VIAL IV PRN ×2 (02:46→22:35)
[2017-02-08] MEDS: VANCOMYCIN 1.5 GM in SOD CHLORIDE 0.9% 250 ML IVPB SCH ×2 (04:02→14:02)
[2017-02-08 06:29] LABS: ADD SCAN DIFF NO
[2017-02-08 06:33] LABS: BASOPHILS % 0.4 % (0.0-2.0); EOSINOPHILS # 0.2 10^3/ul (0.0-0.5); EOSINOPHILS % 2.7 % (0.0-7.0); HEMATOCRIT 39.1 % (42.0-52.0); HEMOGLOBIN 13.3 g/dl (14.0-18.0); LYMPHOCYTES # 1.6 10^3/ul (0.8-2.9); LYMPHOCYTES % 22.9 % (15.0-51.0); MEAN CORPUSCULAR HEMOGLOBIN 33.4 pg (29.0-33.0); MEAN CORPUSCULAR VOLUME 98.2 fl (82.0-101.0); MEAN PLATELET VOLUME 9.7 fl (7.4-10.4); MONOCYTE # 0.6 10^3/ul (0.3-0.9); MONOCYTES % 8.5 % (0.0-11.0); NEUTROPHIL # 4.5 10^3/ul (1.6-7.5); NEUTROPHILS % 63.9 % (39.0-77.0); PLATELET COUNT 216 10^3/UL (140-415); RED BLOOD COUNT 3.98 10^6/ul (4.70-6.10)
[2017-02-08] MEDS: PANTOPRAZOLE (EC) 40 MG TAB PO SCH (06:42)
[2017-02-08] MEDS: LEVOFLOXACIN 500 MG TAB PO SCH (06:42)
[2017-02-08 07:01] LABS: CALCIUM 8.2 mg/dl (8.4-10.2); CREATININE 0.84 mg/dl (0.61-1.24); POTASSIUM 4.7 mmol/L (3.5-5.1)
[2017-02-08 07:04] LABS: PHOSPHORUS 3.2 mg/dl (2.5-4.9)
[2017-02-08 07:56] VITALS: BP 131/80; RESP 18
[2017-02-08] MEDS: ISOSORBIDE MONONITRATE(SR)60 MG TAB PO SCH (09:01)
[2017-02-08] MEDS: CLOPIDOGREL 75 MG TAB PO SCH (09:01)
[2017-02-08] MEDS: METOPROLOL (XL) 25 MG TAB PO SCH (09:01)
[2017-02-08] MEDS: ENOXAPARIN 40 MG/0.4 ML SYG SC SCH (09:02)
[2017-02-08] MEDS: COLLAGENASE 30 GM TUBE TOP SCH (09:02)
--- NOTE | 2017-02-08 11:27 | PN ---
Date/Time of Note Date/Time of Note DATE: 02/08/17 TIME: 11:01 Assessment/Plan VTE Prophylaxis VTE Prophylaxis Intervention: LMWH Lines/Catheters IV Catheter Type (from [facility] Saline Lock Urinary Cath still in place: No Assessment/Plan Assessment/Plan 62-year-old male with: 1. Right medial malleolar infected wound with noted the left lower extremity cellulitis. Cellulitic right lower extremity more or less unchanged, patient also complains some more pain in his right lower extremity. MRI of the right calf and ankle area pending this morning. White blood cell count back to normal x 2 days. Patient now afebrile x 3 days, wound culture with Klebsiella. Continue Vancomycin and Levaquin per infectious disease. Appreciate vascular surgery recommendation, no further intervention per vascular surgery Podiatry consulted and Wound care following 2. Severe chronic venous stasis with varicose veins bilaterally and severe right lower extremity cellulitis associated with chronic venous stasis infected ulcer Continue current care and for now patient remains on antiplatelet therapy. 3. Flank pain, clinical diagnosis of pyelonephritis/cystitis: Urine culture with mixed organisms likely contaminated. Repeat urine culture negative so far Continue Vanco and Levaquin. Afebrile. Blood cultures negative. 4. Hypertension: Continue home meds 5. Benign prostatic hypertrophy: Continue home meds. 6. Gastroesophageal reflux disease: Continue PPI Prophylaxis: PPI for GI prophylaxis and Lovenox for DVT prophylaxis Disposition: Follow-up podiatry recommendations, will discuss with infectious disease if needed placement of PICC line for IV outpatient antibiotics versus oral antibiotics as outpatient. Subjective 24 Hr Interval Summary Free Text/Dictation Patient remained stable, afebrile, white blood cell count within normal for the past 2 days. Right calf with noted edema and area of blistering, still with erythema, Doppler negative for DVT, MRI consistent with cellulitis. Wound care ongoing podiatry recommendation pending. Appreciate ID recommendations. Exam/Review of Systems Vital Signs Vitals Vital Signs Date Time Temp Pulse Resp B/P Pulse Ox O2 Delivery O2 Flow Rate FiO2 02/08/17 07:56 98.5 82 18 131/80 95 Intake and Output 02/07/17 02/07/17 02/08/17 15:00 23:00 07:00 Intake Total 500 ml 1490 ml 663.33 ml Output Total 1250 ml 1250 ml Balance 500 ml 240 ml -586.67 ml Exam Constitutional: alert, oriented, well developed Respiratory: clear to auscultation, normal air movement Cardiovascular: nl pulses, regular rate and rhythm Gastrointestinal: non-tender, soft Extremities: normal pulses, other (Right calf erythema, some tenderness to palpation, slightly less edema. Right medial malleolar wound with dressing in place) 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: UN[employer]AL [employer]ER II-XII intact, nl mental status, nl speech, nl strength Results Result Diagram: 02/08/17 0602/08/17 06 Results 24 hrs Laboratory Tests Test 02/08/17 06:01 White Blood Count 7.0 Red Blood Count 3.98 L Hemoglobin 13.3 L Hematocrit 39.1 L Mean Corpuscular Volume 98.2 Mean Corpuscular Hemoglobin 33.4 H Mean Corpuscular Hemoglobin Concent 34.0 Red Cell Distribution Width 12.0 Platelet Count 216 # Mean Platelet Volume 9.7 Neutrophils % 63.9 Lymphocytes % 22.9 Monocytes % 8.5 Eosinophils % 2.7 Basophils % 0.4 Nucleated Red Blood Cells % 0.0 Neutrophils # 4.5 Lymphocytes # 1.6 Monocytes # 0.6 Eosinophils # 0.2 Basophils # 0.0 Nucleated Red Blood Cells # 0.0 Sodium Level 139 Potassium Level 4.7 Chloride Level 100 Carbon Dioxide Level 28 Anion Gap 16 Blood Urea Nitrogen 9 Creatinine 0.84 Glucose Level 114 Calcium Level 8.2 L Phosphorus Level 3.2 Magnesium Level 2.0 Medications Medications Current Medications Acetaminophen (Tylenol Tab) 650 mg Q4H PRN PO PAIN AND OR ELEVATED TEMP Last administered on 02/06/17 01:29; Admin Dose 650 MG; Start 02/03/17 at 02:30 Morphine Sulfate (morphine) 4 mg Q4H PRN IV pain Last administered on 02:46; Admin Dose 4 MG; Start 02/03/17 at 02:30 Ondansetron HCl (Zofran Inj) 4 mg Q4H PRN IV NAUSEA AND/OR VOMITING Last administered on 02/03/17 20:39; Admin Dose 4 MG; Start 02/03/17 at 02:30 Atorvastatin Calcium (Lipitor) 10 mg QHS PO Last administered on 02/07/17 21: 08; Admin Dose 10 MG; Start 02/03/17 at 21:00 Clopidogrel Bisulfate (plaVIX) 75 mg DAILY PO Last administered on 02/08/17 09 :01; Admin Dose 75 MG; Start 02/03/17 at 09:00 Isosorbide Mononitrate (Imdur) 60 mg DAILY PO Last administered on 02/08/17 09 :01; Admin Dose 60 MG; Start 02/03/17 at 09:00 Metoprolol Succinate (Toprol Xl) 25 mg DAILY PO Last administered on 02/08/17 09:01; Admin Dose 25 MG; Start 02/03/17 at 09:00 Tamsulosin HCl (Flomax) 0.4 mg DAILY@21 PO Last administered on 02/07/17 21:08 ; Admin Dose 0.4 MG; Start 02/03/17 at 21:00 Enoxaparin Sodium (Lovenox) 40 mg DAILY SC Last administered on 02/08/17 09:02 ; Admin Dose 40 MG; Start 02/03/17 at 14:00 Nitroglycerin (Nitroglycerin (Sl Tab) 0.4 Mg) 1 tab Q5M PRN SL ANGINA Last administered on 02/04/17 01:40; Admin Dose 1 TAB; Start 02/04/17 at 01:30 Collagenase (Santyl) 1 applic DAILY TOP Last administered on 02/08/17 09:02; Admin Dose 1 APPLIC; Start 02/04/17 at 11:00 Collagenase 1 applic 1 applic PRN PRN TOP WOUND CARE; Start 02/04/17 at 10:00 Vancomycin HCl/ Sodium Chloride (Vancocin/NS) 250 ml @ 83.333 mls/ hr Q12H IVPB Last administered on 02/08/17 04:02; Admin Dose 83.333 MLS/HR; Start at 03:00 Levofloxacin (Levaquin) 500 mg DAILY@06 PO Last administered on 02/08/17 06:42 ; Admin Dose 500 MG; Start 02/07/17 at 06:00 Procedures Procedures PROCEDURE: MRI of the right lower extremity CLINICAL INDICATION: Right calf and lower extremity pain, evaluate for osteomyelitis TECHNIQUE: Multiplanar multisequence images of the right lower extremity without IV contrast. Images were interpreted at a independent PACS workstation. COMPARISON: Ultrasound of the right lower extremity dated February 04, 2017 FINDINGS: The field of view of this study includes the mid and lower calf. The upper calf and knee is out of the field of view. There is extensive subcutaneous soft tissue swelling and skin thickening with prominent varicose veins seen throughout the visualized portion of the right calf. The right calf is significantly enlarged compared to the left. There is no discrete drainable fluid collection identified. There is no definite soft tissue gas though this should be correlated with plain films/CT as clinically warranted. There is no evidence of underlying osteomyelitis. Bone marrow signal appears normal. There is no evidence of fracture. There is no evidence of muscle or tendon tear. There is no focal muscle atrophy. IMPRESSION: 1. Significantly enlarged right calf with extensive subcutaneous soft tissue swelling and skin thickening, query cellulitis and / or venous stasis. No drainable fluid collection. No definite soft tissue gas though should correlate with plain films/CT as clinically warranted. 2. No evidence of acute fracture or osteomyelitis. 3. No evidence of tendon tear. RPTAT: [facility] .Je Hitchcock MD, MD Date Time Electronically viewed and signed by .Je Hitchcock MD, MD on 02/07/2017 17:12 EDWIN RATLIFF Feb 08, 2017 11:11
[2017-02-08 14:00] VITALS: BP 125/75; RESP 16
--- NOTE | 2017-02-08 18:25 | CONS ---
Date/Time of Note Date/Time of Note DATE: 02/08/17 TIME: 18:22 Assessment/Plan Assessment/Plan Chief Complaint/Hosp Course Alert looks comfortable no fevers right lower extremity looks better, still with significant erythema but swelling is better Microbiology: Blood cultures remain negative, right ankle wound culture growing Klebsiella pneumonia resistant to Ancef gentamicin and Bactrim Antibiotics: Vancomycin and Levaquin CT of the abdomen and pelvis on admission revealed multiple nonobstructive left renal calculi. Ultrasound of the gallbladder revealed no evidence of cholecystitis. Chest x-ray revealed vascular congestion. Arterial study of her extremity revealed no evidence of significant stenosis. Physical examination: This is obese well-developed elderly man who is awake, in no distress. Head atraumatic normocephalic sclera nonicteric, neck is supple, chest rise symmetrical breath sounds diminished basis, heart S1-S2 abdomen soft bowel tones present extremities with right lower extremity edema and erythema Assessment: 1. Right lower extremity cellulitis with infected wound, no evidence of osteomyelitis per MRI 2. Urinary tract infection as per urinalysis 3. Peripheral vascular disease 4. Obesity and BPH Plan: Clinically stable, right lower extremity cellulitis slowly improving, continue on current antibiotics for now, follow podiatry and vascular recommendations, continue right lower extremity elevation Discussed with patient Discussed with Dr Bhatt Problems: Consultation Date/Type/Reason Admit Date/Time Feb 04, 2017 at 09:56 Type of Consultation: ID Exam/Review of Systems Vital Signs Vitals Vital Signs Date Time Temp Pulse Resp B/P Pulse Ox O2 Delivery O2 Flow Rate FiO2 02/08/17 14:00 98.6 77 16 125/75 94 Intake and Output 02/07/17 02/07/17 02/08/17 15:00 23:00 07:00 Intake Total 500 ml 1490 ml 663.33 ml Output Total 1250 ml 1250 ml Balance 500 ml 240 ml -586.67 ml Results Result Diagram: 02/08/17 0601 02/08/17 0601 Results 24 hrs Laboratory Tests Test 02/08/17 06:01 White Blood Count 7.0 Red Blood Count 3.98 L Hemoglobin 13.3 L Hematocrit 39.1 L Mean Corpuscular Volume 98.2 Mean Corpuscular Hemoglobin 33.4 H Mean Corpuscular Hemoglobin Concent 34.0 Red Cell Distribution Width 12.0 Platelet Count 216 # Mean Platelet Volume 9.7 Neutrophils % 63.9 Lymphocytes % 22.9 Monocytes % 8.5 Eosinophils % 2.7 Basophils % 0.4 Nucleated Red Blood Cells % 0.0 Neutrophils # 4.5 Lymphocytes # 1.6 Monocytes # 0.6 Eosinophils # 0.2 Basophils # 0.0 Nucleated Red Blood Cells # 0.0 Sodium Level 139 Potassium Level 4.7 Chloride Level 100 Carbon Dioxide Level 28 Anion Gap 16 Blood Urea Nitrogen 9 Creatinine 0.84 Glucose Level 114 Calcium Level 8.2 L Phosphorus Level 3.2 Magnesium Level 2.0 Medications Medications Current Medications Acetaminophen (Tylenol Tab) 650 mg Q4H PRN PO PAIN AND OR ELEVATED TEMP Last administered on 02/06/17 01:29; Admin Dose 650 MG; Start 02/03/17 at 02:30 Morphine Sulfate (morphine) 4 mg Q4H PRN IV pain Last administered on 02:46; Admin Dose 4 MG; Start 02/03/17 at 02:30 Ondansetron HCl (Zofran Inj) 4 mg Q4H PRN IV NAUSEA AND/OR VOMITING Last administered on 02/03/17 20:39; Admin Dose 4 MG; Start 02/03/17 at 02:30 Atorvastatin Calcium (Lipitor) 10 mg QHS PO Last administered on 02/07/17 21: 08; Admin Dose 10 MG; Start 02/03/17 at 21:00 Clopidogrel Bisulfate (plaVIX) 75 mg DAILY PO Last administered on 02/08/17 09 :01; Admin Dose 75 MG; Start 02/03/17 at 09:00 Isosorbide Mononitrate (Imdur) 60 mg DAILY PO Last administered on 02/08/17 09 :01; Admin Dose 60 MG; Start 02/03/17 at 09:00 Metoprolol Succinate (Toprol Xl) 25 mg DAILY PO Last administered on 02/08/17 09:01; Admin Dose 25 MG; Start 02/03/17 at 09:00 Tamsulosin HCl (Flomax) 0.4 mg DAILY@21 PO Last administered on 02/07/17 21:08 ; Admin Dose 0.4 MG; Start 02/03/17 at 21:00 Enoxaparin Sodium (Lovenox) 40 mg DAILY SC Last administered on 02/08/17 09:02 ; Admin Dose 40 MG; Start 02/03/17 at 14:00 Nitroglycerin (Nitroglycerin (Sl Tab) 0.4 Mg) 1 tab Q5M PRN SL ANGINA Last administered on 02/04/17 01:40; Admin Dose 1 TAB; Start 02/04/17 at 01:30 Collagenase (Santyl) 1 applic DAILY TOP Last administered on 02/08/17 09:02; Admin Dose 1 APPLIC; Start 02/04/17 at 11:00 Collagenase 1 applic 1 applic PRN PRN TOP WOUND CARE; Start 02/04/17 at 10:00 Vancomycin HCl/ Sodium Chloride (Vancocin/NS) 250 ml @ 83.333 mls/ hr Q12H IVPB Last administered on 02/08/17 14:02; Admin Dose 83.333 MLS/HR; Start at 03:00 Levofloxacin (Levaquin) 500 mg DAILY@06 PO Last administered on 02/08/17 06:42 ; Admin Dose 500 MG; Start 02/07/17 at 06:00 DANILO MCDONALD NP Feb 08, 2017 18:25
--- NOTE | 2017-02-08 18:51 | CONS ---
Date/Time of Note Date/Time of Note DATE: 02/07/17 TIME: 18:49 Assessment/Plan Assessment/Plan Problems: (1) Venous stasis ulcer (2) Venous stasis Additional Assessment/Plan Patient will require vascular surgery evaluation. Patient will require compressive bandaging on a daily basis. At this point I do not recommend surgical management. Continue IV antibiotics and monitoring. I will see the patient in-house. Thank you very much for involving me in the care of this patient. Consultation Date/Type/Reason Admit Date/Time Feb 04, 2017 at 09:56 Date of Consultation: Feb 07, 2017 Type of Consultation: Foot and ankle surgery Reason for Consultation Right ankle open wound Hx of Present Illness Thank you very much for involving me in the care of this patient. As you very well know this is a 62-year-old male patient with multiple medical problems including benign prostatic hypertrophy, peripheral arterial disease, hypertension, morbid obesity who presented to the emergency department of [facility] complaining of bilateral flank pain. He also reported fevers chills and nausea for the past 3-4 days. Patient was found to have swelling and skin changes in his right lower extremity along with open wounds. I was consulted to evaluate the right lower extremity. Currently patient does not report pain in his right leg. He says that the nurses have placed a new bandage on his right ankle wound. Reports that he has been having this problem for several years and he heals and then reopens the wounds. Patient also has history of cardiac disease. Constitutional: No chills, No diaphoresis, No disoriented, No febrile, No improved, No no complaints, No other, No poor po, No requiring IVF, No requiring O2 Eyes: no complaints, No discharge, No other, No pain, No redness, No visual change ENT: no complaints, No bleeding, No congestion, No discharge, No dysphagia, No other, No pain, No sore throat Respiratory: no complaints, No cough, No other, No pain, No pleuritic pain, No shortness of breath, No sputum, No wheezing Cardiovascular: no complaints, No chest pain, No edema, No lightheadedness, No orthopenea, No other, No palpitations, No paroxysmal nocturnal dyspnea Gastrointestinal: decreased appetite, nausea Genitourinary: dysuria, flank pain Musculoskeletal: no complaints Skin: other (left maleolar recurrent wound ) Neurologic: no complaints Lymphatic: other (varicose veins) Past Medical History As per history of present illness. Medical History: GERD, hypertension Past Surgical History As per history of present illness. Past Surgical Hx: no surgical history Social History As per history of present illness. Alcohol Use: sober (Patient quit 4 years ago only drinks occasional red wine) Smoking Status: Former smoker (At least one pack a day for 40 years and quit 4 years ago) Drug Use: none Exam/Review of Systems Vital Signs Vitals Vital Signs Date Time Temp Pulse Resp B/P Pulse Ox O2 Delivery O2 Flow Rate FiO2 02/08/17 14:00 98.6 77 16 125/75 94 Intake and Output 02/07/17 02/07/17 02/08/17 15:00 23:00 07:00 Intake Total 500 ml 1490 ml 663.33 ml Output Total 1250 ml 1250 ml Balance 500 ml 240 ml -586.67 ml Exam Patient is morbidly obese in no acute distress laying supine in bed. Bandages are present on the distal right leg. Bandages were removed. Patient has multiple open wounds circumferentially around the distal lower leg and ankle area. There is no active drainage of pus and no bleeding noted. There is no pus noted. Malodor present but mild. Significant hyperpigmentation of the skin noted in the right lower leg. Dorsalis pedis and posterior tibial pulses not palpable secondary to be extensive edema present. Labs reviewed. Imaging reviewed. Results Result Diagram: 02/08/17 0601 02/08/17 0601 Results 24 hrs Laboratory Tests Test 02/08/17 06:01 White Blood Count 7.0 Red Blood Count 3.98 L Hemoglobin 13.3 L Hematocrit 39.1 L Mean Corpuscular Volume 98.2 Mean Corpuscular Hemoglobin 33.4 H Mean Corpuscular Hemoglobin Concent 34.0 Red Cell Distribution Width 12.0 Platelet Count 216 # Mean Platelet Volume 9.7 Neutrophils % 63.9 Lymphocytes % 22.9 Monocytes % 8.5 Eosinophils % 2.7 Basophils % 0.4 Nucleated Red Blood Cells % 0.0 Neutrophils # 4.5 Lymphocytes # 1.6 Monocytes # 0.6 Eosinophils # 0.2 Basophils # 0.0 Nucleated Red Blood Cells # 0.0 Sodium Level 139 Potassium Level 4.7 Chloride Level 100 Carbon Dioxide Level 28 Anion Gap 16 Blood Urea Nitrogen 9 Creatinine 0.84 Glucose Level 114 Calcium Level 8.2 L Phosphorus Level 3.2 Magnesium Level 2.0 Medications Medications Current Medications Acetaminophen (Tylenol Tab) 650 mg Q4H PRN PO PAIN AND OR ELEVATED TEMP Last administered on 02/06/17 01:29; Admin Dose 650 MG; Start 02/03/17 at 02:30 Morphine Sulfate (morphine) 4 mg Q4H PRN IV pain Last administered on 02:46; Admin Dose 4 MG; Start 02/03/17 at 02:30 Ondansetron HCl (Zofran Inj) 4 mg Q4H PRN IV NAUSEA AND/OR VOMITING Last administered on 02/03/17 20:39; Admin Dose 4 MG; Start 02/03/17 at 02:30 Atorvastatin Calcium (Lipitor) 10 mg QHS PO Last administered on 02/07/17 21: 08; Admin Dose 10 MG; Start 02/03/17 at 21:00 Clopidogrel Bisulfate (plaVIX) 75 mg DAILY PO Last administered on 02/08/17 09 :01; Admin Dose 75 MG; Start 02/03/17 at 09:00 Isosorbide Mononitrate (Imdur) 60 mg DAILY PO Last administered on 02/08/17 09 :01; Admin Dose 60 MG; Start 02/03/17 at 09:00 Metoprolol Succinate (Toprol Xl) 25 mg DAILY PO Last administered on 02/08/17 09:01; Admin Dose 25 MG; Start 02/03/17 at 09:00 Tamsulosin HCl (Flomax) 0.4 mg DAILY@21 PO Last administered on 02/07/17 21:08 ; Admin Dose 0.4 MG; Start 02/03/17 at 21:00 Enoxaparin Sodium (Lovenox) 40 mg DAILY SC Last administered on 02/08/17 09:02 ; Admin Dose 40 MG; Start 02/03/17 at 14:00 Nitroglycerin (Nitroglycerin (Sl Tab) 0.4 Mg) 1 tab Q5M PRN SL ANGINA Last administered on 02/04/17 01:40; Admin Dose 1 TAB; Start 02/04/17 at 01:30 Collagenase (Santyl) 1 applic DAILY TOP Last administered on 02/08/17 09:02; Admin Dose 1 APPLIC; Start 02/04/17 at 11:00 Collagenase 1 applic 1 applic PRN PRN TOP WOUND CARE; Start 02/04/17 at 10:00 Vancomycin HCl/ Sodium Chloride (Vancocin/NS) 250 ml @ 83.333 mls/ hr Q12H IVPB Last administered on 02/08/17 14:02; Admin Dose 83.333 MLS/HR; Start at 03:00 Levofloxacin (Levaquin) 500 mg DAILY@06 PO Last administered on 02/08/17 06:42 ; Admin Dose 500 MG; Start 02/07/17 at 06:00 ANIYAH ZIMMERMAN DPM Feb 08, 2017 18:51
[2017-02-08 19:56] VITALS: BP 139/83; RESP 21
[2017-02-08] MEDS: ATORVASTATIN 10 MG TAB PO SCH (20:06)
[2017-02-08] MEDS: TAMSULOSIN (SR) 0.4 MG CAP PO SCH (20:06)
--- NOTE | 2017-02-08 23:37 | PN ---
Date/Time of Note Date/Time of Note DATE: 02/08/17 TIME: 23:34 Assessment/Plan Lines/Catheters IV Catheter Type (from Nrsg): Saline Lock Baltazar in Place (from Nrsg): No Assessment/Plan Problems: (1) Venous stasis (2) Venous stasis ulcer Assessment/Plan Continue daily dressing changes. My recommendation is Acticoat to be applied to the open wound of the right lower leg and change daily. Compression bandaging is recommended along with vascular surgery follow-up. No surgery recommended at this time for the right lower extremity. I have discussed the case with patient's admitting physician. Patient will be followed while in- house. May be discharged home and followed up at the amputation prevention center in 1 week. Subjective 24 Hr Interval Summary Patient was seen and examined today. He reports improvement. Denies any pain, chest pain, shortness of breath, fever, chills, nausea or vomiting. Patient is on IV antibiotics currently and has a PICC line. Constitutional: no complaints Pain Control: well controlled Exam/Review of Systems Vital Signs Vitals Vital Signs Date Time Temp Pulse Resp B/P Pulse Ox O2 Delivery O2 Flow Rate FiO2 02/08/17 19:56 98.0 93 21 139/83 94 Intake and Output 02/07/17 02/07/17 02/08/17 15:00 23:00 07:00 Intake Total 500 ml 1490 ml 663.33 ml Output Total 1250 ml 1250 ml Balance 500 ml 240 ml -586.67 ml Exam Free Text/Dictation Morbidly obese male in no acute distress. Decreased edema noted in the right lower extremity with decrease in erythema. Wrinkling sign present. Continues to have open wound on the distal aspect of the right leg circumferentially with no pus and no bleeding. Labs reviewed. No open wound noted on the left lower extremity. He does continue to have edema of the left lower extremity as well. Results Result Diagram: 02/08/17 0601 02/08/17 0601 ANIYAH ZIMMERMAN DPM Feb 08, 2017 23:37
[2017-02-09 02:28] VITALS: BP 130/75; RESP 18
[2017-02-09] MEDS: VANCOMYCIN 1.5 GM in SOD CHLORIDE 0.9% 250 ML IVPB SCH ×2 (02:51→14:19)
[2017-02-09] MEDS: LEVOFLOXACIN 500 MG TAB PO SCH (06:28)
[2017-02-09 06:29] LABS: ADD SCAN DIFF NO
[2017-02-09 06:30] LABS: BASOPHIL # 0.1 10^3/ul (0.0-0.1); BASOPHILS % 0.7 % (0.0-2.0); EOSINOPHILS # 0.3 10^3/ul (0.0-0.5); EOSINOPHILS % 3.2 % (0.0-7.0); HEMATOCRIT 41.4 % (42.0-52.0); HEMOGLOBIN 14.1 g/dl (14.0-18.0); LYMPHOCYTES # 2.1 10^3/ul (0.8-2.9); LYMPHOCYTES % 26.1 % (15.0-51.0); MEAN CORPUSCULAR HEMOGLOBIN 33.7 pg (29.0-33.0); MEAN CORPUSCULAR HGB CONC 34.1 g/dl (32.0-37.0); MEAN CORPUSCULAR VOLUME 98.8 fl (82.0-101.0); MEAN PLATELET VOLUME 9.8 fl (7.4-10.4); MONOCYTE # 0.7 10^3/ul (0.3-0.9); NEUTROPHIL # 4.9 10^3/ul (1.6-7.5); NEUTROPHILS % 60.4 % (39.0-77.0); PLATELET COUNT 264 10^3/UL (140-415); RED BLOOD COUNT 4.19 10^6/ul (4.70-6.10); WHITE BLOOD COUNT 8.2 10^3/ul (4.8-10.8)
[2017-02-09] MEDS: PANTOPRAZOLE (EC) 40 MG TAB PO SCH (06:30)
[2017-02-09 07:21] LABS: CALCIUM 8.5 mg/dl (8.4-10.2); CREATININE 0.8 mg/dl (0.61-1.24); POTASSIUM 4.2 mmol/L (3.5-5.1)
[2017-02-09 07:55] VITALS: BP 147/90; RESP 16
[2017-02-09] MEDS: COLLAGENASE 30 GM TUBE TOP SCH (09:00)
[2017-02-09] MEDS: ISOSORBIDE MONONITRATE(SR)60 MG TAB PO SCH (09:17)
[2017-02-09] MEDS: CLOPIDOGREL 75 MG TAB PO SCH (09:17)
[2017-02-09] MEDS: METOPROLOL (XL) 25 MG TAB PO SCH (09:17)
[2017-02-09] MEDS: ENOXAPARIN 40 MG/0.4 ML SYG SC SCH (09:18)
--- NOTE | 2017-02-09 10:18 | PN ---
Date/Time of Note Date/Time of Note DATE: 02/09/17 TIME: 10:04 Assessment/Plan VTE Prophylaxis VTE Prophylaxis Intervention: LMWH Lines/Catheters IV Catheter Type (from [facility]): Saline Lock Urinary Cath still in place: No Assessment/Plan Assessment/Plan 62-year-old male with: 1. Right medial malleolar infected wound with noted the left lower extremity cellulitis. Cellulitic right lower extremity more or less unchanged, patient also complains some more pain in his right lower extremity. MRI of the right calf and ankle area showing cellulitis, no osteomyelitis, white blood cell count back to normal x 3 days. Patient now afebrile x 4 days, wound culture with Klebsiella. Continue Vancomycin and Levaquin po per infectious disease. Appreciate vascular surgery and podiatry recommendations, no further intervention Continue antibiotics per infectious disease and Wound care. 2. Severe chronic venous stasis with varicose veins bilaterally and severe right lower extremity cellulitis associated with chronic venous stasis infected ulcer Continue current care and for now patient remains on antiplatelet therapy. 3. Flank pain, clinical diagnosis of pyelonephritis/cystitis: Resolved, urine culture with mixed organisms likely contaminated. Repeat urine culture negative. Continue Vanco and Levaquin. Afebrile. Blood cultures negative. 4. Hypertension: Continue home meds 5. Benign prostatic hypertrophy: Continue home meds. 6. Gastroesophageal reflux disease: Continue PPI Prophylaxis: PPI for GI prophylaxis and Lovenox for DVT prophylaxis Disposition: Discharge planning for tomorrow, follow-up infectious disease recommendations today, if no need for IV antibiotics plan for discharge on oral Levaquin tomorrow, if needs IV antibiotics, we will need placement of PICC line. Subjective 24 Hr Interval Summary Free Text/Dictation Patient feels better, no fevers, white blood cell count within normal for a few days. Right lower extremity cellulitis slightly better with less edema, erythema still significant but seems to be fading away. Appreciate recommendation from Dr. Brewer from podiatry, no surgical debridement needed, continue wound care, continue antibiotics. Awaiting final infectious disease recommendation regarding p.o. versus IV antibiotics. Exam/Review of Systems Vital Signs Vitals Vital Signs Date Time Temp Pulse Resp B/P Pulse Ox O2 Delivery O2 Flow Rate FiO2 02/09/17 07:55 97.9 77 16 147/90 98 Intake and Output 02/08/17 02/08/1717 15:00 23:00 07:00 Intake Total 2170 ml 850 ml Output Total 1100 ml 600 ml Balance 1070 ml 250 ml Exam Constitutional: alert, oriented, well developed Respiratory: clear to auscultation, normal air movement Cardiovascular: nl pulses, regular rate and rhythm Musculoskeletal: other (Right lower extremity edema improved, erythema slightly improved, decreased pain) Extremities: edema (Right lower extremity improved), normal pulses 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: 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 intact, nl mental status, nl speech Results Result Diagram: 02/09/17 0534 02/09/17 0534 Results 24 hrs Laboratory Tests Test 02/09/17 05:34 White Blood Count 8.2 Red Blood Count 4.19 L Hemoglobin 14.1 Hematocrit 41.4 L Mean Corpuscular Volume 98.8 Mean Corpuscular Hemoglobin 33.7 H Mean Corpuscular Hemoglobin Concent 34.1 Red Cell Distribution Width 12.0 Platelet Count 264 # Mean Platelet Volume 9.8 Neutrophils % 60.4 Lymphocytes % 26.1 Monocytes % 8.0 Eosinophils % 3.2 Basophils % 0.7 Nucleated Red Blood Cells % 0.0 Neutrophils # 4.9 Lymphocytes # 2.1 Monocytes # 0.7 Eosinophils # 0.3 Basophils # 0.1 Nucleated Red Blood Cells # 0.0 Sodium Level 141 Potassium Level 4.2 Chloride Level 101 Carbon Dioxide Level 27 Anion Gap 17 H Blood Urea Nitrogen 9 Creatinine 0.80 Glucose Level 107 Calcium Level 8.5 Magnesium Level 1.9 Medications Medications Current Medications Acetaminophen (Tylenol Tab) 650 mg Q4H PRN PO PAIN AND OR ELEVATED TEMP Last administered on 02/06/17 01:29; Admin Dose 650 MG; Start 02/03/17 at 02:30 Morphine Sulfate (morphine) 4 mg Q4H PRN IV pain Last administered on 22:35; Admin Dose 4 MG; Start 02/03/17 at 02:30 Ondansetron HCl (Zofran Inj) 4 mg Q4H PRN IV NAUSEA AND/OR VOMITING Last administered on 02/03/17 20:39; Admin Dose 4 MG; Start 02/03/17 at 02:30 Atorvastatin Calcium (Lipitor) 10 mg QHS PO Last administered on 02/08/17 20: 06; Admin Dose 10 MG; Start 02/03/17 at 21:00 Clopidogrel Bisulfate (plaVIX) 75 mg DAILY PO Last administered on 02/09/17 09 :17; Admin Dose 75 MG; Start 02/03/17 at 09:00 Isosorbide Mononitrate (Imdur) 60 mg DAILY PO Last administered on 02/09/17 09 :17; Admin Dose 60 MG; Start 02/03/17 at 09:00 Metoprolol Succinate (Toprol Xl) 25 mg DAILY PO Last administered on 02/09/17 09:17; Admin Dose 25 MG; Start 02/03/17 at 09:00 Tamsulosin HCl (Flomax) 0.4 mg DAILY@21 PO Last administered on 02/08/17 20:06 ; Admin Dose 0.4 MG; Start 02/03/17 at 21:00 Enoxaparin Sodium (Lovenox) 40 mg DAILY SC Last administered on 02/09/17 09:18 ; Admin Dose 40 MG; Start 02/03/17 at 14:00 Nitroglycerin (Nitroglycerin (Sl Tab) 0.4 Mg) 1 tab Q5M PRN SL ANGINA Last administered on 02/04/17 01:40; Admin Dose 1 TAB; Start 02/04/17 at 01:30 Collagenase (Santyl) 1 applic DAILY TOP Last administered on 02/08/17 09:02; Admin Dose 1 APPLIC; Start 02/04/17 at 11:00 Collagenase 1 applic 1 applic PRN PRN TOP WOUND CARE; Start 02/04/17 at 10:00 Vancomycin HCl/ Sodium Chloride (Vancocin/NS) 250 ml @ 83.333 mls/ hr Q12H IVPB Last administered on 02/09/17 02:51; Admin Dose 83.333 MLS/HR; Start at 03:00 Levofloxacin (Levaquin) 500 mg DAILY@06 PO Last administered on 02/09/17 06:28 ; Admin Dose 500 MG; Start 02/07/17 at 06:00 EDWIN RATLIFF Feb 09, 2017 10:17
[2017-02-09] MEDS ORDERED: LIDOCAINE 1% (MPF) 5 ML VIAL SC ONE (11:30)
[2017-02-09 12:54] LABS: INR 0.93; PROTIME 12.5 Sec (12.2-14.2)
[2017-02-09 12:55] LABS: PARTIAL THROMBOPLASTIN TIME 38.3 Sec (25.0-35.0)
--- NOTE | 2017-02-09 13:34 | CONS ---
Date/Time of Note Date/Time of Note DATE: 02/09/17 TIME: 13:33 Assessment/Plan Assessment/Plan Chief Complaint/Hosp Course Alert looks comfortable no fevers right lower extremity looks better, still with significant erythema and depending swelling Microbiology: Blood cultures remain negative, right ankle wound culture growing Klebsiella pneumonia resistant to Ancef gentamicin and Bactrim Antibiotics: Vancomycin and Levaquin CT of the abdomen and pelvis on admission revealed multiple nonobstructive left renal calculi. Ultrasound of the gallbladder revealed no evidence of cholecystitis. Chest x-ray revealed vascular congestion. Arterial study of her extremity revealed no evidence of significant stenosis. Physical examination: This is obese well-developed elderly man who is awake, in no distress. Head atraumatic normocephalic sclera nonicteric, neck is supple, chest rise symmetrical breath sounds diminished basis, heart S1-S2 abdomen soft bowel tones present extremities with right lower extremity edema and erythema Assessment: 1. Right lower extremity cellulitis with infected wound, no evidence of osteomyelitis per MRI 2. Urinary tract infection as per urinalysis 3. Peripheral vascular disease 4. Obesity and BPH Plan: Clinically stable, right lower extremity cellulitis slowly improving, will keep on current antibiotics for another couple more weeks, consider PICC line placement, continue right lower extremity elevation, follow podiatry recommendations Discussed with patient Discussed with Dr Bhatt Problems: Consultation Date/Type/Reason Admit Date/Time Feb 04, 2017 at 09:56 Type of Consultation: ID Exam/Review of Systems Vital Signs Vitals Vital Signs Date Time Temp Pulse Resp B/P Pulse Ox O2 Delivery O2 Flow Rate FiO2 02/09/17 07:55 97.9 77 16 147/90 98 Intake and Output 02/08/17 02/08/17 02/09/17 15:00 23:00 07:00 Intake Total 2170 ml 850 ml Output Total 1100 ml 600 ml Balance 1070 ml 250 ml Results Result Diagram: 02/09/17 0534 02/09/17 0534 Results 24 hrs Laboratory Tests Test 02/09/17 05:34 02/09/17 12:12 White Blood Count 8.2 Red Blood Count 4.19 L Hemoglobin 14.1 Hematocrit 41.4 L Mean Corpuscular Volume 98.8 Mean Corpuscular Hemoglobin 33.7 H Mean Corpuscular Hemoglobin Concent 34.1 Red Cell Distribution Width 12.0 Platelet Count 264 # Mean Platelet Volume 9.8 Neutrophils % 60.4 Lymphocytes % 26.1 Monocytes % 8.0 Eosinophils % 3.2 Basophils % 0.7 Nucleated Red Blood Cells % 0.0 Neutrophils # 4.9 Lymphocytes # 2.1 Monocytes # 0.7 Eosinophils # 0.3 Basophils # 0.1 Nucleated Red Blood Cells # 0.0 Sodium Level 141 Potassium Level 4.2 Chloride Level 101 Carbon Dioxide Level 27 Anion Gap 17 H Blood Urea Nitrogen 9 Creatinine 0.80 Glucose Level 107 Calcium Level 8.5 Magnesium Level 1.9 Prothrombin Time 12.5 Prothrombin Time Ratio 1.0 INR International Normalized Ratio 0.93 Activated Partial Thromboplast Time 38.3 H Medications Medications Current Medications Acetaminophen (Tylenol Tab) 650 mg Q4H PRN PO PAIN AND OR ELEVATED TEMP Last administered on 02/06/17 01:29; Admin Dose 650 MG; Start 02/03/17 at 02:30 Morphine Sulfate (morphine) 4 mg Q4H PRN IV pain Last administered on 22:35; Admin Dose 4 MG; Start 02/03/17 at 02:30 Ondansetron HCl (Zofran Inj) 4 mg Q4H PRN IV NAUSEA AND/OR VOMITING Last administered on 02/03/17 20:39; Admin Dose 4 MG; Start 02/03/17 at 02:30 Atorvastatin Calcium (Lipitor) 10 mg QHS PO Last administered on 02/08/17 20: 06; Admin Dose 10 MG; Start 02/03/17 at 21:00 Clopidogrel Bisulfate (plaVIX) 75 mg DAILY PO Last administered on 02/09/17 09 :17; Admin Dose 75 MG; Start 02/03/17 at 09:00 Isosorbide Mononitrate (Imdur) 60 mg DAILY PO Last administered on 02/09/17 09 :17; Admin Dose 60 MG; Start 02/03/17 at 09:00 Metoprolol Succinate (Toprol Xl) 25 mg DAILY PO Last administered on 02/09/17 09:17; Admin Dose 25 MG; Start 02/03/17 at 09:00 Tamsulosin HCl (Flomax) 0.4 mg DAILY@21 PO Last administered on 02/08/17 20:06 ; Admin Dose 0.4 MG; Start 02/03/17 at 21:00 Enoxaparin Sodium (Lovenox) 40 mg DAILY SC Last administered on 02/09/17 09:18 ; Admin Dose 40 MG; Start 02/03/17 at 14:00 Nitroglycerin (Nitroglycerin (Sl Tab) 0.4 Mg) 1 tab Q5M PRN SL ANGINA Last administered on 02/04/17 01:40; Admin Dose 1 TAB; Start 02/04/17 at 01:30 Collagenase (Santyl) 1 applic DAILY TOP Last administered on 02/08/17 09:02; Admin Dose 1 APPLIC; Start 02/04/17 at 11:00 Collagenase 1 applic 1 applic PRN PRN TOP WOUND CARE; Start 02/04/17 at 10:00 Vancomycin HCl/ Sodium Chloride (Vancocin/NS) 250 ml @ 83.333 mls/ hr Q12H IVPB Last administered on 02/09/17 02:51; Admin Dose 83.333 MLS/HR; Start at 03:00 Levofloxacin (Levaquin) 500 mg DAILY@06 PO Last administered on 02/09/17 06:28 ; Admin Dose 500 MG; Start 02/07/17 at 06:00 DANILO MCDONALD NP Feb 09, 2017 13:34
[2017-02-09 14:40] VITALS: BP 119/63; RESP 16
--- NOTE | 2017-02-09 16:04 | PN ---
Date/Time of Note Date/Time of Note DATE: 02/09/17 TIME: 16:01 Assessment/Plan Lines/Catheters IV Catheter Type (from Nrsg): Saline Lock Baltazar in Place (from Nrsg): No Assessment/Plan Assessment/Plan Cellulitis / venous stasis ulcer right medial calf - improving with IV antibiotics OK for discharge from my standpoint - I will see him in the office next week for followup He will need compression therapy and will likely benefit from venous ablation to treat the varicose veins once the cellulits has completely resolved Subjective 24 Hr Interval Summary Feels better. Much less pain and tenderness in the right leg. Exam/Review of Systems Vital Signs Vitals Vital Signs Date Time Temp Pulse Resp B/P Pulse Ox O2 Delivery O2 Flow Rate FiO2 02/09/17 07:55 97.9 77 16 147/90 98 Intake and Output 02/08/17 02/08/17 02/09/17 15:00 23:00 07:00 Intake Total 2170 ml 850 ml Output Total 1100 ml 600 ml Balance 1070 ml 250 ml Exam Free Text/Dictation Right medial calf erythema has greatly reduced and edema has improved. No longer tender. Ulcer is dressed. Results Result Diagram: 02/09/17 0534 02/09/17 0534 HAMMAD GARRIDO MD Feb 09, 2017 16:04
[2017-02-09] MEDS ORDERED: SOD CHLORIDE 0.9% 100 ML ONE (16:52)
--- NOTE | 2017-02-09 17:50 | RADRPT ---
PROCEDURE: XR Chest. CLINICAL INDICATION: Check PICC line position. TECHNIQUE: Single frontal view. COMPARISON: 02/02/2017. FINDINGS: There is a left arm PICC line with the tip in the cavoatrial junction region. The lungs are clear. The heart size is normal. There is calcification in the aorta consistent with atherosclerosis. There is no pleural effusion. There is no pneumothorax. IMPRESSION: 1. Left arm PICC line tip in satisfactory position. 2. Atherosclerosis. 3. Clear lungs. RPTAT: QQ .Luis M Almaraz MD, MD Date Time Electronically viewed and signed by .Luis M Almaraz MD, MD on 02/09/2017 17:50 .R/
[2017-02-09 20:43] VITALS: BP 135/77; RESP 21
[2017-02-09] MEDS: TAMSULOSIN (SR) 0.4 MG CAP PO SCH (20:50)
[2017-02-09] MEDS: ATORVASTATIN 10 MG TAB PO SCH (20:50)
[2017-02-10] MEDS: VANCOMYCIN 1.5 GM in SOD CHLORIDE 0.9% 250 ML IVPB SCH ×2 (03:24→15:24)
[2017-02-10] MEDS: LEVOFLOXACIN 500 MG TAB PO SCH (05:26)
[2017-02-10] MEDS: PANTOPRAZOLE (EC) 40 MG TAB PO SCH (06:38)
[2017-02-10] MEDS: ISOSORBIDE MONONITRATE(SR)60 MG TAB PO SCH (08:35)
[2017-02-10] MEDS: CLOPIDOGREL 75 MG TAB PO SCH (08:35)
[2017-02-10] MEDS: ENOXAPARIN 40 MG/0.4 ML SYG SC SCH (08:36)
[2017-02-10] MEDS: METOPROLOL (XL) 25 MG TAB PO SCH (08:36)
[2017-02-10 08:56] VITALS: BP 125/76; RESP 21
--- NOTE | 2017-02-10 12:15 | PN ---
Date/Time of Note Date/Time of Note DATE: 02/10/17 TIME: 12:10 Assessment/Plan VTE Prophylaxis VTE Prophylaxis Intervention: LMWH Lines/Catheters IV Catheter Type (from Nrs): PICC Line Central line still needed: Yes (for IV abx ) Urinary Cath still in place: No Assessment/Plan Assessment/Plan 62-year-old male with: 1. Right medial malleolar infected wound with noted the left lower extremity cellulitis. Cellulitic right lower extremity more or less unchanged, patient also complains some more pain in his right lower extremity. MRI of the right calf and ankle area showing cellulitis, no osteomyelitis, white blood cell count back to normal for a few days . Patient now afebrile x5 days, wound culture with Klebsiella. Continue Vancomycin and Levaquin po per infectious disease x 14 days Appreciate vascular surgery and podiatry recommendations, no further intervention Continue Wound care outpatient. 2. Severe chronic venous stasis with varicose veins bilaterally and severe right lower extremity cellulitis associated with chronic venous stasis infected ulcer Continue current care and for now patient remains on antiplatelet therapy. 3. Flank pain, clinical diagnosis of pyelonephritis/cystitis: Resolved, urine culture with mixed organisms likely contaminated. Repeat urine culture negative. Continue Vanco and Levaquin x 14 days. Afebrile. Blood cultures negative. 4. Hypertension: Continue home meds 5. Benign prostatic hypertrophy: Continue home meds. 6. Gastroesophageal reflux disease: Continue PPI Prophylaxis: PPI for GI prophylaxis and Lovenox for DVT prophylaxis Disposition: Discharge home today, follow-up with PCP and Podiatry outpatient, [facility]x and wound care. Subjective 24 Hr Interval Summary Free Text/Dictation Patient doing well, s/p PICC line placement for IV abx Less pain and edema RLE Erythema slowly improving D/c home today with PICC lien and IV abx Exam/Review of Systems Vital Signs Vitals Vital Signs Date Time Temp Pulse Resp B/P Pulse Ox O2 Delivery O2 Flow Rate FiO2 02/10/17 08:56 97.7 87 21 125/76 96 Intake and Output 02/09/17 02/09/17 02/10/17 15:00 23:00 07:00 Intake Total 1100 ml 800 ml Output Total 700 ml Balance 1100 ml 100 ml Exam Constitutional: alert, oriented, well developed Psych: no complaints Respiratory: clear to auscultation, normal air movement Cardiovascular: nl pulses, regular rate and rhythm Gastrointestinal: non-tender, soft Musculoskeletal: swelling (less RLE ) Extremities: normal pulses, other (less erythema RLE ), tenderness (Less RLE ) 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: 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 II-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 intact, nl mental status, nl speech, nl strength Results Result Diagram: 02/09/17 0534 02/09/17 0534 Results 24 hrs Laboratory Tests Test 02/09/17 12:12 Prothrombin Time 12.5 Prothrombin Time Ratio 1.0 INR International Normalized Ratio 0.93 Activated Partial Thromboplast Time 38.3 H Medications Medications Current Medications Acetaminophen (Tylenol Tab) 650 mg Q4H PRN PO PAIN AND OR ELEVATED TEMP Last administered on 02/06/17 01:29; Admin Dose 650 MG; Start 02/03/17 at 02:30 Morphine Sulfate (morphine) 4 mg Q4H PRN IV pain Last administered on 22:35; Admin Dose 4 MG; Start 02/03/17 at 02:30 Ondansetron HCl (Zofran Inj) 4 mg Q4H PRN IV NAUSEA AND/OR VOMITING Last administered on 02/03/17 20:39; Admin Dose 4 MG; Start 02/03/17 at 02:30 Atorvastatin Calcium (Lipitor) 10 mg QHS PO Last administered on 02/09/17 20: 50; Admin Dose 10 MG; Start 02/03/17 at 21:00 Clopidogrel Bisulfate (plaVIX) 75 mg DAILY PO Last administered on 02/10/17 08 :35; Admin Dose 75 MG; Start 02/03/17 at 09:00 Isosorbide Mononitrate (Imdur) 60 mg DAILY PO Last administered on 02/10/17 08 :35; Admin Dose 60 MG; Start 02/03/17 at 09:00 Metoprolol Succinate (Toprol Xl) 25 mg DAILY PO Last administered on 02/10/17 08:36; Admin Dose 25 MG; Start 02/03/17 at 09:00 Tamsulosin HCl (Flomax) 0.4 mg DAILY@21 PO Last administered on 02/09/17 20:50 ; Admin Dose 0.4 MG; Start 02/03/17 at 21:00 Enoxaparin Sodium (Lovenox) 40 mg DAILY SC Last administered on 02/10/17 08:36 ; Admin Dose 40 MG; Start 02/03/17 at 14:00 Nitroglycerin (Nitroglycerin (Sl Tab) 0.4 Mg) 1 tab Q5M PRN SL ANGINA Last administered on 02/04/17 01:40; Admin Dose 1 TAB; Start 02/04/17 at 01:30 Collagenase (Santyl) 1 applic DAILY TOP Last administered on 02/08/17 09:02; Admin Dose 1 APPLIC; Start 02/04/17 at 11:00 Collagenase 1 applic 1 applic PRN PRN TOP WOUND CARE; Start 02/04/17 at 10:00 Vancomycin HCl/ Sodium Chloride (Vancocin/NS) 250 ml @ 83.333 mls/ hr Q12H IVPB Last administered on 02/10/17 03:24; Admin Dose 83.333 MLS/HR; Start at 03:00 Levofloxacin (Levaquin) 500 mg DAILY@06 PO Last administered on 02/10/17 05:26 ; Admin Dose 500 MG; Start 02/07/17 at 06:00 IV Flush (NS 10 ml) 10 ml PRN PRN IV IV PROTOCOL; Start 02/09/17 at 17:30 EDWIN RATLIFF Feb 10, 2017 12:15
--- NOTE | 2017-02-10 12:29 | PDOCDIS ---
Discharge Instructions CONDITION Patient Condition: Stable HOME CARE INSTRUCTIONS: Special Diet: 2GM NA ACTIVITY: Activity Restrictions: Slowly Increase Activity Keep Limb Elevated (RLE) FOLLOW UP/APPOINTMENTS Follow-up Plan Follow up with PCP within 1 week Follow up with Home Health RN for IV abx and wound care Follow up with Dr Brewer in 1 to 2 weeks re right medial malleolar ulcer EDWIN RATLIFF Feb 10, 2017 12:28
[2017-02-10] MEDS ORDERED: LEVO500T72 PO (12:31)
[2017-02-10] MEDS ORDERED: VANC1.5P10 IV (12:31)
[2017-02-10] MEDS ORDERED: LACT1CAP57 PO (12:33)
[2017-02-10] MEDS: COLLAGENASE 30 GM TUBE TOP SCH (13:38)
--- NOTE | 2017-02-10 14:43 | CONS ---
Date/Time of Note Date/Time of Note DATE: 02/10/17 TIME: 14:42 Assessment/Plan Assessment/Plan Chief Complaint/Hosp Course Alert looks comfortable no fevers right lower extremity looks better, still with significant erythema and depending swelling Microbiology: Blood cultures remain negative, right ankle wound culture growing Klebsiella pneumonia resistant to Ancef gentamicin and Bactrim Antibiotics: Vancomycin and Levaquin CT of the abdomen and pelvis on admission revealed multiple nonobstructive left renal calculi. Ultrasound of the gallbladder revealed no evidence of cholecystitis. Chest x-ray revealed vascular congestion. Arterial study of her extremity revealed no evidence of significant stenosis. Physical examination: This is obese well-developed elderly man who is awake, in no distress. Head atraumatic normocephalic sclera nonicteric, neck is supple, chest rise symmetrical breath sounds diminished basis, heart S1-S2 abdomen soft bowel tones present extremities with right lower extremity edema and erythema Assessment: 1. Right lower extremity cellulitis with infected wound, no evidence of osteomyelitis per MRI 2. Urinary tract infection as per urinalysis 3. Peripheral vascular disease 4. Obesity and BPH Plan: Clinically stable, right lower extremity cellulitis slowly improving, continue antibiotics, pending PICC line placement, continue right lower extremity elevation, follow podiatry recommendations Discussed with patient Discussed with Dr Bhtat Problems: Consultation Date/Type/Reason Admit Date/Time Feb 04, 2017 at 09:56 Type of Consultation: ID Exam/Review of Systems Vital Signs Vitals Vital Signs Date Time Temp Pulse Resp B/P Pulse Ox O2 Delivery O2 Flow Rate FiO2 02/10/17 08:56 97.7 87 21 125/76 96 Intake and Output 02/09/17 02/09/17 02/10/17 15:00 23:00 07:00 Intake Total 1100 ml 800 ml Output Total 700 ml Balance 1100 ml 100 ml Results Result Diagram: 02/09/17 0534 02/09/17 0534 Medications Medications Current Medications Acetaminophen (Tylenol Tab) 650 mg Q4H PRN PO PAIN AND OR ELEVATED TEMP Last administered on 02/06/17 01:29; Admin Dose 650 MG; Start 02/03/17 at 02:30 Morphine Sulfate (morphine) 4 mg Q4H PRN IV pain Last administered on 22:35; Admin Dose 4 MG; Start 02/03/17 at 02:30 Ondansetron HCl (Zofran Inj) 4 mg Q4H PRN IV NAUSEA AND/OR VOMITING Last administered on 02/03/17 20:39; Admin Dose 4 MG; Start 02/03/17 at 02:30 Atorvastatin Calcium (Lipitor) 10 mg QHS PO Last administered on 02/09/17 20: 50; Admin Dose 10 MG; Start 02/03/17 at 21:00 Clopidogrel Bisulfate (plaVIX) 75 mg DAILY PO Last administered on 02/10/17 08 :35; Admin Dose 75 MG; Start 02/03/17 at 09:00 Isosorbide Mononitrate (Imdur) 60 mg DAILY PO Last administered on 02/10/17 08 :35; Admin Dose 60 MG; Start 02/03/17 at 09:00 Metoprolol Succinate (Toprol Xl) 25 mg DAILY PO Last administered on 02/10/17 08:36; Admin Dose 25 MG; Start 02/03/17 at 09:00 Tamsulosin HCl (Flomax) 0.4 mg DAILY@21 PO Last administered on 02/09/17 20:50 ; Admin Dose 0.4 MG; Start 02/03/17 at 21:00 Enoxaparin Sodium (Lovenox) 40 mg DAILY SC Last administered on 02/10/17 08:36 ; Admin Dose 40 MG; Start 02/03/17 at 14:00 Nitroglycerin (Nitroglycerin (Sl Tab) 0.4 Mg) 1 tab Q5M PRN SL ANGINA Last administered on 02/04/17 01:40; Admin Dose 1 TAB; Start 02/04/17 at 01:30 Collagenase (Santyl) 1 applic DAILY TOP Last administered on 02/10/17 13:38; Admin Dose 1 APPLIC; Start 02/04/17 at 11:00 Collagenase 1 applic 1 applic PRN PRN TOP WOUND CARE; Start 02/04/17 at 10:00 Vancomycin HCl/ Sodium Chloride (Vancocin/NS) 250 ml @ 83.333 mls/ hr Q12H IVPB Last administered on 02/10/17 03:24; Admin Dose 83.333 MLS/HR; Start at 03:00 Levofloxacin (Levaquin) 500 mg DAILY@06 PO Last administered on 02/10/17 05:26 ; Admin Dose 500 MG; Start 02/07/17 at 06:00 IV Flush (NS 10 ml) 10 ml PRN PRN IV IV PROTOCOL; Start 02/09/17 at 17:30 DANILO MCDONALD NP Feb 10, 2017 14:43
[2017-02-10 14:57] VITALS: BP 104/58; RESP 22
[2017-02-10] MEDS: morphine 4 MG/ML VIAL IV PRN (15:36)
== END 2017-02-10 19:59 | disposition home health service (06) | DRG 603 ==
LOC: E/R 17:13 → PP2 23:39 → OBSVTOIN 02-04 09:56
PROVIDERS: ADMIT Legal Medicine; ATTEND Legal Medicine
PROC: 02HV33Z Insertion of Infusion Device into Superior Vena Cava, Percutaneous Approach (ICD-10-PCS; principal; 2017-02-09)
DX: L03.115 Cellulitis of right lower limb (principal); N12 Tubulo-interstitial nephritis, not specified as acute or chronic; L97.319 Non-pressure chronic ulcer of right ankle with unspecified severity; E66.01 Morbid (severe) obesity due to excess calories; N30.90 Cystitis, unspecified without hematuria; I10 Essential (primary) hypertension; I83.013 Varicose veins of right lower extremity with ulcer of ankle; I73.9 Peripheral vascular disease, unspecified; I83.92 Asymptomatic varicose veins of left lower extremity; R07.9 Chest pain, unspecified; K21.9 Gastro-esophageal reflux disease without esophagitis; L08.9 Local infection of the skin and subcutaneous tissue, unspecified; N20.0 Calculus of kidney; N40.0 Benign prostatic hyperplasia without lower urinary tract symptoms; B96.1 Klebsiella pneumoniae [K. pneumoniae] as the cause of diseases classified elsewhere; Z68.33 Body mass index [BMI] 33.0-33.9, adult; Z87.891 Personal history of nicotine dependence; Z16.24 Resistance to multiple antibiotics; Z79.02 Long term (current) use of antithrombotics/antiplatelets
CPT/HCPCS: 36415; 36569; 71010; 73718; 74177; 76705; 76937; 80048; 80053; 80061; 80202; 81001; 83605; 83615; 83735; 84100; 84484; 85025; 85610; 85651; 85730; 86140; 87040; 87070; 87086; 93005; 93922; 93970; 96374; 96375; 96376; G0378; C1769; J0696; J1170; J1650; J1956; J2185; J2270; J2405; J3370; J3475; J7030; J7050; Q9967

== ENCOUNTER 2018-05-07 20:12 | Inpatient (IN) | END 2018-05-08 14:59 | disposition home or self-care (01) | DRG 440 ==

== ENCOUNTER 2019-01-03 16:31 | Emergency (ER) | payer OTHER ==
[~2019-01-03] VITALS: Ht 170.2 cm; Wt 93.3 kg
[~2019-01-03 16:31] MED LIST changes: +CLOP75TA27 PO; -CLOP75TA4 PO; -ISOS60TA PO; +LISI-471 PO; -MECL25TA2 PO; +MELO15TA30 PO; +METO-319 PO; -METO25TA7 PO; -NIT4 SL; +OXYB5TAB22 PO; +PANT40TA3 PO; -RANI150T9 PO; +TAMS0.4C2 PO
[2019-01-03 16:36] VITALS: Ht 170.2 cm; Wt 93.3 kg
--- NOTE | 2019-01-03 18:16 | ERD ---
ER Documentation Chief Complaint Chief Complaint abdominal pain x 3 days HPI The patient is a 63-year-old male, presenting to the ER because of intermittent abdominal cramping for the last 3 days, had similar symptoms before, complains of constipation, denies fever, chills, neck pain, chest pain, dyspnea, vomiting, dysuria. He does not smoke nor drink Past medical history: Hypertension, BPH, hypertension, dyslipidemia, hepatic steatosis Past surgical history: Varicosis vein ROS All systems reviewed and are negative except as per history of present illness. Medications Home Meds Active Scripts Tramadol HCl (Tramadol HCl) 50 Mg Tablet, 50 MG PO Q6 PRN for PAIN, #10 TAB Prov:RAMIRO CANDELARIO MD 01/03/19 Polyethylene Glycol* (Miralax*) 17 Gm Powd.pack, 17 GM PO DAILY, #7 Prov:RAMIRO CANDELARIO MD 01/03/19 Reported Medications Oxybutynin Chloride* (Ditropan* XL) 5 Mg Tabsr, 5 MG PO DAILY, TAB.SA 05/07/18 Lisinopril* (Lisinopril*) 20 Mg Tablet, 20 MG PO DAILY, #30 TAB 05/07/18 Tamsulosin Hcl* (Tamsulosin Hcl*) 0.4 Mg Cap.er.24h, 0.4 MG PO HS, CAP 05/07/18 Pantoprazole* (Protonix*) 40 Mg Tablet.dr, 40 MG PO DAILY, TAB 05/07/18 Metoprolol Succinate* (Toprol XL*) 50 Mg Tab.er.24h, 50 MG PO DAILY, #30 TAB 05/07/18 Meloxicam* (Mobic*) 15 Mg Tablet, 15 MG PO DAILY, #30 TAB 05/07/18 Clopidogrel Bisulfate (Clopidogrel) 75 Mg Tablet, 75 MG PO DAILY, #30 TAB 05/07/18 Atorvastatin Calcium (Atorvastatin Calcium) 10 Mg Tablet, 10 MG PO QHS, #30 TAB 05/07/18 Allergies Allergies: Coded Allergies: amoxicillin (Unverified Allergy, Unknown, 02/02/17) PMhx/Soc History of Surgery: Yes (VARICOSE VEINS BLE) Anesthesia Reaction: No Hx 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 Disorder: Yes (VERTIGO) Hx Respiratory Disorders: No Hx Cardiac Disorders: Yes (HTN) Hx Psychiatric Problems: No Hx Miscellaneous Medical Probl: No Hx Alcohol Use: Yes Hx Substance Use: No Hx Tobacco Use: Yes Physical Exam Vitals Vital Signs Date Temp Pulse Resp B/P (MAP) Pulse Ox O2 O2 Flow FiO2 Time Delivery Rate 01/03/19 98.6 63 14 125/84 98 Room Air 20:55 (98) 01/03/19 53 16 119/81 96 Room Air 19:30 (94) 01/03/19 98.5 76 19 135/78 97 16:36 (97) Physical Exam Const: No acute distress. Head: Atraumatic. Eyes: Normal Conjunctiva. ENT: Normal External Ears, Nose and Mouth. Neck: Full range of motion. No meningismus. Resp: Clear to auscultation bilaterally. Cardio: Regular rate and rhythm. Abd: Soft, non distended, normal bowel sounds, non tender. Skin: No petechiae or rashes. Back: No midline or flank tenderness. Ext: No cyanosis, or edema. Neur: Awake and alert. No focal deficit Psych: Normal Mood and Affect. Result Diagram: 01/03/19 1833 01/03/19 1833 Results 24 hrs Laboratory Tests Test 01/03/19 18:33 01/03/19 18:42 White Blood Count 5.4 10^3/ul Red Blood Count 4.30 10^6/ul Hemoglobin 14.7 g/dl Hematocrit 42.6 % Mean Corpuscular Volume 99.1 fl Mean Corpuscular Hemoglobin 34.2 pg Mean Corpuscular Hemoglobin Concent 34.5 g/dl Red Cell Distribution Width 11.9 % Platelet Count 140 10^3/UL Mean Platelet Volume 9.8 fl Immature Granulocytes % 0.200 % Neutrophils % 46.1 % Lymphocytes % 42.3 % Monocytes % 7.9 % Eosinophils % 2.8 % Basophils % 0.7 % Nucleated Red Blood Cells % 0.0 /100WBC Immature Granulocytes # 0.010 10^3/ul Neutrophils # 2.5 10^3/ul Lymphocytes # 2.3 10^3/ul Monocytes # 0.4 10^3/ul Eosinophils # 0.2 10^3/ul Basophils # 0.0 10^3/ul Nucleated Red Blood Cells # 0.0 10^3/ul Sodium Level 144 mmol/L Potassium Level 3.7 mmol/L Chloride Level 105 mmol/L Carbon Dioxide Level 26 mmol/L Anion Gap 13 Blood Urea Nitrogen 16 mg/dl Creatinine 0.95 mg/dl Est Glomerular Filtrat Rate mL/min > 60 mL/min Glucose Level 118 mg/dl Calcium Level 9.1 mg/dl Total Bilirubin 0.9 mg/dl Direct Bilirubin 0.00 mg/dl Indirect Bilirubin 0.9 mg/dl Aspartate Amino Transf (AST/SGOT) 22 IU/L Alanine Aminotransferase (ALT/SGPT) 37 IU/L Alkaline Phosphatase 44 IU/L Total Protein 8.5 g/dl Albumin 4.6 g/dl Globulin 3.90 g/dl Albumin/Globulin Ratio 1.17 Lipase 198 U/L Ethyl Alcohol Level < 10.0 mg/dl Bedside Urine pH (LAB) 5.0 Bedside Urine Protein (LAB) Negative Bedside Urine Glucose (UA) Negative Bedside Urine Ketones (LAB) Negative Bedside Urine Blood 3+ Bedside Urine Nitrite (LAB) Negative Bedside Urine Leukocyte Esterase (L Trace Current Medications Medications Dose Sig/[place] Start Time Status Last (Trade) Ordered Route PRN Stop Time Admin Dose Reason Admin Ketorolac 30 mg ONCE STAT 01/03/19 DC 01/03/19 Tromethamine IV 18:27 18:38 (Toradol) 01/03/19 18:28 Procedures/MDM MEDICAL MAKING DECISION: The patient is a 63-year-old male, presenting with abdominal pain of unclear etiology, most likely constipation, acute hematuria. He had a CAT scan and ultrasound of the abdomen recently on May 07, 2018, there is no need to repeat another CT scan of the abdomen. He was treated with Toradol 30 mg IV for pain with good response The differential diagnoses considered include but are not limited to cholelithiasis, cholecystitis, choledocholithiasis, cholangitis, pancreatitis, hepatitis, gastritis, peptic ulcer disease, gastric ulcer, appendicitis, cystitis, diverticulitis, partial small bowel obstruction. Departure Diagnosis: Primary Impression: Abdominal pain Condition: Good Comments He was discharged with Ultram and MiraLAX I discussed the findings with the patient. I advised the patient to follow-up with the primary physician in about 2-3 days referred to urologist Dr. eMadows, sooner if needed and return if any concern. Disclaimer: Inadvertent spelling and grammatical errors are likely due to EHR/dictation software use and do not reflect on the overall quality of patient care. Also, please note that the electronic time recorded on this note does not necessarily reflect the actual time of the patient encounter. RAMIRO CANDELARIO MD Jan 03, 2019 18:16
[2019-01-03] MEDS ORDERED: KETOROLAC 30 MG INJ IV STA (18:27)
[2019-01-03] MEDS ORDERED: POLY17PO6 PO (20:45)
[2019-01-03] MEDS ORDERED: TRAM50TA2 PO (20:46)
[2019-01-03 20:55] VITALS: BP 125/84; PULSE 63; RESP 14
== END 2019-01-03 20:53 | disposition home or self-care (01) ==
LOC: E/R 16:31
DX: R10.9 Unspecified abdominal pain (principal); I10 Essential (primary) hypertension; Z79.01 Long term (current) use of anticoagulants; Z87.891 Personal history of nicotine dependence
CPT/HCPCS: 36415; 80053; 80307; 81003; 83690; 85025; 96374; J1885; Z7502

== ENCOUNTER 2019-04-11 17:21 | Emergency (ER) | payer OTHER ==
[~2019-04-11] VITALS: Ht 165.1 cm; Wt 89.0 kg
[~2019-04-11 17:21] MED LIST changes: +CEPH-443 PO; +IBUP800T48 PO; +PHEN-537 PO; +POLY17PO6 PO; +TRAM50TA2 PO
[2019-04-11 17:24] VITALS: Ht 165.1 cm; Wt 89.0 kg
[2019-04-11] MEDS ORDERED: CEFTRIAXONE 1 GM/50 ML (PMX) 50 ML IVPB ONE (19:30)
[2019-04-11 20:32] VITALS: BP 149/90; PULSE 68; RESP 18
== END 2019-04-11 20:32 | disposition home or self-care (01) ==
LOC: E/R 17:21
DX: N30.00 Acute cystitis without hematuria (principal); T83.192A Other mechanical complication of indwelling ureteral stent, initial encounter; F17.210 Nicotine dependence, cigarettes, uncomplicated; I10 Essential (primary) hypertension; Y73.8 Miscellaneous gastroenterology and urology devices associated with adverse incidents, not elsewhere classified; Z79.01 Long term (current) use of anticoagulants
CPT/HCPCS: 36415; 74018; 74176; 80053; 81001; 83690; 85025; 87086; 96374; J0696; Z7502